=== PATIENT | male | born 1955 | race Caucasian/White ===

== ENCOUNTER → 2016-11-04 | Outpatient (CLI) | payer MEDICARE, OTHER ==
[2016-11-04 13:58] LABS: Aspartate Aminotransferase 13 U/L (15-37)
== END | disposition home or self-care (01) ==
LOC: LAB 13:16
PROVIDERS: ATTEND Internal Medicine
DX: E78.00 Pure hypercholesterolemia, unspecified (principal)
CPT/HCPCS: 36415; 84450; 84460

== ENCOUNTER → 2016-11-06 | Outpatient (CLI) | payer OTHER | END | disposition home or self-care (01) | LOC: RT 10:43 | PROVIDERS: ATTEND Internal Medicine | DX: J44.9 Chronic obstructive pulmonary disease, unspecified (principal) | CPT/HCPCS: 36600; 82805 ==

== ENCOUNTER → 2017-01-29 | Outpatient (CLI) | payer OTHER, MEDICARE ==
[2017-01-29 10:05] LABS: Basophils # (auto) 0 uL; Basophils % (auto) 0.5 % (0.0-2.0); Eosinophils # (auto) 0.1 uL; Eosinophils % (auto) 1.5 % (0.0-7.0); Hematocrit 48.3 % (41.0-53.0); Hemoglobin 16.3 g/dL (13.5-17.5); Lymphocytes # (auto) 1.4 uL; Mean Corpuscular Hemoglobin 31.5 pg (28.0-32.0); Mean Corpuscular Hgb Conc. 33.7 g/dL (32.0-36.0); Mean Corpuscular Volume 93.3 fL (80.0-100.0); Monocytes # (auto) 0.6 uL; Monocytes % (auto) 9.1 % (0.0-12.0); Neutrophils # (auto) 4.7 uL; Neutrophils % (auto) 67.9 % (37.0-80.0); Platelet Count (auto) 280 10^3/uL (140-450); Red Cell Distribution Width 14.1 % (11.6-16.0); White Blood Cell 6.9 10^3/uL (4.4-10.8)
[2017-01-29 11:17] LABS: Albumin 4.1 g/dL (3.4-5.0); BUN/Creatinine Ratio 10.3; Bilirubin, Total 0.6 mg/dL (0.2-1.0); Calcium 8.9 mg/dL (8.5-10.1); Potassium 3.8 mmol/L (3.5-5.1); Total Protein 7.5 g/dL (6.4-8.2)
[2017-01-29 12:01] LABS: Urine Bilirubin Negative (Negative); Urine Blood Negative /uL (Negative); Urine Color Yellow (Yellow); Urine Glucose Normal (Normal); Urine Ketone Negative (Negative); Urine Nitrite Negative (Negative); Urine RBC 1 /hpf (0 - 3); Urine Squamous Epithelial Cell FEW /hpf (<5); Urine Urobilinogen Normal (Negative)
== END | disposition home or self-care (01) ==
LOC: LAB 09:23
PROVIDERS: ATTEND Internal Medicine
DX: J44.9 Chronic obstructive pulmonary disease, unspecified (principal); I10 Essential (primary) hypertension; E78.00 Pure hypercholesterolemia, unspecified
CPT/HCPCS: 36415; 80053; 80061; 81001; 82043; 82306; 84439; 84443; 85025; 85652

== ENCOUNTER → 2017-03-02 | Outpatient (CLI) | payer OTHER | END | disposition home or self-care (01) | LOC: LAB 11:18 | PROVIDERS: ATTEND Internal Medicine Gastroenterology | DX: Z12.11 Encounter for screening for malignant neoplasm of colon (principal) | CPT/HCPCS: 82270 ==

== ENCOUNTER 2019-06-08 08:30 | Inpatient (IN) | payer OTHER, MEDICAID ==
[~2019-06-08] VITALS: Ht 182.9 cm; Wt 86.8 kg
[~2019-06-08 08:30] MED LIST: AMPI500C8 PO; FLUO20CA19 PO; GABA100C9 PO; HYDR25TA4 PO; KEP500T PO; LOVA40TA72 PO; PALI9TAB2 PO; POTA10TA51 PO; TAMS0.4C36 PO
[2019-06-08] MEDS ORDERED: SODIUM CHLORIDE 0.9% 1,000 ML IV ONE ×2 (08:56)
[2019-06-08 09:35] LABS: Hematocrit 45.7 % (41.0-53.0); Mean Corpuscular Hemoglobin 30.5 pg (28.0-32.0); Mean Corpuscular Hgb Conc. 32.9 g/dL (32.0-36.0); Mean Corpuscular Volume 92.8 fL (80.0-100.0); Platelet Count (auto) 252 10^3/uL (140-450); Red Blood Cells 4.92 10^6/uL (4.5-5.90); Red Cell Distribution Width 13.9 % (11.8-14.3); White Blood Cell 19.9 10^3/uL (4.4-10.8)
[2019-06-08 09:45] LABS: Basophils % (manual) 0 (0.0-2.0); Blast Cells 0; Eosinophils % (manual) 0 (0-7); Metamyelocytes % 0; Myelocytes % 0; Promyelocytes % 0; Reactive Lymphocytes 0
[2019-06-08 09:51] LABS: INR 1.01 (0.9-1.15); Partial Thromboplastin Time 28.8 sec (23.64-32.05)
[2019-06-08 09:52] LABS: Albumin 3.5 g/dL (3.4-5.0); Anion Gap 10 (5-15); BUN/Creatinine Ratio 14.3; Blood Urea Nitrogen 17 mg/dL (7-18); Calcium 8.1 mg/dL (8.5-10.1); Carbon Dioxide 26 mmol/L (21-32); Chloride 104 mmol/L (98-107); GFR African American 80 mL/min; GFR Non-African American 66 mL/min; Glucose 119 mg/dL (74-106); Potassium 3.6 mmol/L (3.5-5.1); Sodium 140 mmol/L (136-145)
[2019-06-08 09:57] LABS: Alanine Aminotransferase 27 U/L (16-61); Alkaline Phosphatase 94 U/L (45-117); Aspartate Aminotransferase 90 U/L (15-37); Bilirubin, Total 0.6 mg/dL (0.2-1.0); Total Protein 7.1 g/dL (6.4-8.2)
[2019-06-08 10:59] LABS: Band Neutrophils % (manual) 22; Lymphocytes % (manual) 2 (10.0-50.0); Monocytes % (manual) 3 (0-12)
[2019-06-08] MEDS ORDERED: cefTRIAXone 1GM/50ML D5W 50 ML IV ONE (12:30)
[2019-06-08] MEDS ORDERED: AZITHROMYCIN 500MG/ 250ML 250 ML IV ONE (12:30)
[2019-06-08] MEDS ORDERED: SODIUM CHLORIDE 0.9% 1,000 ML IV SCH (12:43)
[2019-06-08] MEDS ORDERED: ALBUTEROL SULF 2.5 MG/0.5ML(0.5%) NEB SOLN NEB PRN (12:45)
[2019-06-08] MEDS ORDERED: NITROGLYCERIN 0.4 MG SL TAB SL PRN (12:45)
[2019-06-08] MEDS ORDERED: LORazepam 2MG/ML-1ML VIAL IV PRN (12:45)
[2019-06-08] MEDS ORDERED: traMADol HCL 50 MG TAB PO PRN (12:45)
[2019-06-08] MEDS ORDERED: DEXTROSE (50%) 50ML SYRG IV PRN (12:45)
[2019-06-08] MEDS ORDERED: ACETAMINOPHEN 500 MG TAB PO PRN (12:45)
[2019-06-08] MEDS ORDERED: PROMETHAZINE HCL 25 MG/ML 1ML IV PRN (12:45)
[2019-06-08] MEDS ORDERED: LACTULOSE 20Gm/30ML SOLN PO PRN (12:45)
[2019-06-08] MEDS ORDERED: TEMAZEPAM 15 MG CAP PO PRN (12:45)
[2019-06-08] MEDS ORDERED: MORPHINE SULF INJ 2 MG/ML SYRINGE 1ML IV PRN (12:45)
[2019-06-08] MEDS ORDERED: ENOXAPARIN SOD 40 MG/0.4 ML SYRINGE SC ONE (13:00)
[2019-06-08] MEDS ORDERED: LEVETIRACETAM 500 MG TAB PO ONE (13:30)
[2019-06-08] MEDS ORDERED: FLUoxetine HCL 20 MG CAP PO ONE (13:30)
[2019-06-08] MEDS ORDERED: PANTOPRAZOLE 40 MG TAB PO ONE (13:30)
[2019-06-08] MEDS ORDERED: NICOTINE 21MG/24 HR TOPICAL PATCH TD ONE (15:30)
[2019-06-08] MEDS: SODIUM CHLORIDE 0.9% 1,000 ML IV SCH ×2 (15:40→22:45)
[2019-06-08] MEDS ORDERED: MIRT30TA PO (15:50)
[2019-06-08 17:00] VITALS: BP 118/74
[2019-06-08] MEDS: ACCU-CHEK COMFORT CURVE STRIP VI SCH ×2 (17:00→22:11)
[2019-06-08] MEDS: ALBUTEROL SULF 2.5 MG/0.5ML(0.5%) NEB SOLN NEB SCH (18:55)
--- NOTE | 2019-06-08 19:45 | NUR ---
RECEIVED PATIENT FROM DAY SHIFT RN. PATIENT RESTING IN BED. SOB NOTED, BUT NO DISTRESS. DENIED PAIN FOR NOW. PATIENT IS ON 10L/OXYMIZER WITH O2 SAT 92%. PATIENT JUST RECEIVED BREATHING TREATMENT ABOUT 40 MINUTES AGO. TOTAL LINEN CHANGED. PATIENT TOLERATED WELL. REORIENTED PATIENT SITUATION, AND INSTRUCTED PATIENT ON POC. ENCOURAGED PATIENT TO CALL FOR MODERN LANGUAGES PROFESSOR IF NEEDED. BED IN LOWEST POSITION WITH PADDED SIDE RAILS UP X 2. CALL PIMENTEL WITHIN REACH. ALARM ON. CONTINUE TO MONITOR FOR CHANGES Q1H AND PRN.
[2019-06-08 22:00] VITALS: BP 108/66
[2019-06-08] MEDS: TAMSULOSIN HYDROCHLORIDE 0.4 MG CAP PO SCH (22:11)
[2019-06-08] MEDS: PRAVASTATIN SODIUM 20 MG TAB PO SCH (22:11)
[2019-06-08] MEDS: LEVETIRACETAM 500 MG TAB PO SCH (22:11)
[2019-06-08] MEDS: FLUoxetine HCL 20 MG CAP PO SCH (22:11)
--- NOTE | 2019-06-08 22:12 | NUR ---
SCHEDULED ORAL MEDICATION GIVEN ORDERED. PATIENT SWALLOWED WELL. NO S/S OF ASPIRATION NOTED. CONTINUE TO MONITOR.
[2019-06-09] MEDS: ALBUTEROL SULF 2.5 MG/0.5ML(0.5%) NEB SOLN NEB SCH ×5 (00:29→23:32)
--- NOTE | 2019-06-09 01:14 | NUR ---
REPOSITIONED PATIENT, PATIENT TOLERATED WELL. CONTINUE TO MONITOR.
[2019-06-09 05:00] VITALS: BP 102/75
--- NOTE | 2019-06-09 05:15 | NUR ---
PATIENT INCONTINENT, URINATED ON THE BED. PARTIAL LINEN CHANGED AND PATIENT GOWN. PATIENT TOLERATED WELL. REPOSITIONED PATIENT. CONTINUE TO MONITOR.
[2019-06-09 06:34] LABS: Basophils # (auto) 0.1 uL; Basophils % (auto) 0.5 % (0.0-2.0); Eosinophils # (auto) 0 uL; Eosinophils % (auto) 0.2 % (0.0-7.0); Hematocrit 39.1 % (41.0-53.0); Hemoglobin 13.3 g/dL (13.5-17.5); Lymphocytes # (auto) 0.6 uL; Lymphocytes % (auto) 4.9 % (10.0-50.0); Mean Corpuscular Hemoglobin 31.4 pg (28.0-32.0); Mean Corpuscular Volume 92.3 fL (80.0-100.0); Monocytes # (auto) 1.1 uL; Monocytes % (auto) 8.5 % (0.0-12.0); Neutrophils # (auto) 11.1 uL; Neutrophils % (auto) 85.9 % (37.0-80.0); Platelet Count (auto) 188 10^3/uL (140-450); Red Blood Cells 4.23 10^6/uL (4.5-5.90); White Blood Cell 12.9 10^3/uL (4.4-10.8)
--- NOTE | 2019-06-09 06:50 | NUR ---
URINE SAMPLE COLLECTED AND SENT. CONTINUE TO MONITOR.
[2019-06-09] MEDS: ACCU-CHEK COMFORT CURVE STRIP VI SCH ×2 (06:59→11:30)
[2019-06-09] MEDS: PALIPERIDONE 9 MG PO SCH (07:00)
[2019-06-09 07:17] LABS: Urine Bacteria FEW /hpf (None Seen); Urine Blood 3+ /uL (Negative); Urine Mucus FEW (None Seen); Urine Specific Gravity 1.015 (1.001-1.035); Urine WBC 29 /hpf (0 - 3)
[2019-06-09 07:38] LABS: Alcohol, Urine < 3.0 mg/dL (0-5); Amphetamine Screen, Urine NEGATIVE (NEGATIVE); Barbiturate Scree,Urine NEGATIVE (NEGATIVE); Benzodiazephine Screen, Urine NEGATIVE (NEGATIVE); Cannabinoid Screen, Urine NEGATIVE (NEGATIVE); Cocaine Screen, Urine NEGATIVE (NEGATIVE); Opiate Scree,Urine NEGATIVE (NEGATIVE); Phencyclidine Screen, Urine NEGATIVE (NEGATIVE)
[2019-06-09 09:00] VITALS: BP 127/87
[2019-06-09] MEDS: NICOTINE 21MG/24 HR TOPICAL PATCH TD SCH (09:04)
[2019-06-09] MEDS: ENOXAPARIN SOD 40 MG/0.4 ML SYRINGE SC SCH (09:04)
[2019-06-09] MEDS: FLUoxetine HCL 20 MG CAP PO SCH ×2 (09:05→21:57)
[2019-06-09] MEDS: PANTOPRAZOLE 40 MG TAB PO SCH (09:05)
[2019-06-09] MEDS: LEVETIRACETAM 500 MG TAB PO SCH ×2 (09:05→21:57)
[2019-06-09] MEDS: SODIUM CHLORIDE 0.9% 1,000 ML IV SCH ×2 (09:05→13:15)
[2019-06-09] MEDS: AZITHROMYCIN 500MG/ 250ML 250 ML IV SCH (09:06)
[2019-06-09] MEDS: cefTRIAXone 1GM/50ML D5W 50 ML IV SCH (09:06)
[2019-06-09 13:00] VITALS: BP 106/71
--- NOTE | 2019-06-09 16:41 | NUR ---
assessment Per ss consult history of falls, mental retardation, living with sister. Per patients sister Kristan patient fell this time early in the morning tripped over dog and fell in dog stool. Per Kristan patient has a fww and a wheelchair for home use. Patients PCP is Dr Botello. Per Kristan patients mother, her and another sister will be moving in together with patient and patient will have multiple family members to help him. Patient is on service with [facility]. Patient will need a resumption order on discharge. Kristan verbalized understanding and agreed to discharge plan home on discharge. Addendum: 06/09/19 at 1644 by Albertina TATE Amended: Links added.
[2019-06-09 17:00] VITALS: BP 106/71
[2019-06-09] MEDS: ACETYLCYSTEINE 10 %(100MG/ML) SOL 4ML NEB SCH ×2 (19:30→23:32)
[2019-06-09 20:00] VITALS: BP 124/85
[2019-06-09] MEDS: PRAVASTATIN SODIUM 20 MG TAB PO SCH (21:57)
[2019-06-09] MEDS: TAMSULOSIN HYDROCHLORIDE 0.4 MG CAP PO SCH (21:57)
[2019-06-09 22:00] VITALS: BP 124/85
[2019-06-10 05:00] VITALS: BP 126/72
--- NOTE | 2019-06-10 05:35 | NUR ---
Patient bathe/linen change Patient given complete bath. Skin integrity assessed for any changes. Linens changed. Patient repositioned for comfort.
[2019-06-10] MEDS: SODIUM CHLORIDE 0.9% 1,000 ML IV SCH (05:55)
[2019-06-10] MEDS: PALIPERIDONE 9 MG PO SCH (07:00)
[2019-06-10] MEDS: ALBUTEROL SULF 2.5 MG/0.5ML(0.5%) NEB SOLN NEB SCH ×3 (07:22→18:47)
[2019-06-10] MEDS: ACETYLCYSTEINE 10 %(100MG/ML) SOL 4ML NEB SCH ×3 (07:22→18:47)
--- NOTE | 2019-06-10 07:45 | NUR ---
opening patient awake in bed, bed in lowest position, call light within reach. no distress noted at this time. will f/u with morning assessment
[2019-06-10 08:00] VITALS: BP 120/78
[2019-06-10] MEDS: AZITHROMYCIN 500MG/ 250ML 250 ML IV SCH (10:04)
[2019-06-10] MEDS: cefTRIAXone 1GM/50ML D5W 50 ML IV SCH (10:04)
[2019-06-10] MEDS: FLUoxetine HCL 20 MG CAP PO SCH ×2 (10:05→22:15)
[2019-06-10] MEDS: ENOXAPARIN SOD 40 MG/0.4 ML SYRINGE SC SCH (10:05)
[2019-06-10] MEDS: PANTOPRAZOLE 40 MG TAB PO SCH (10:05)
[2019-06-10] MEDS: LEVETIRACETAM 500 MG TAB PO SCH ×2 (10:05→22:15)
[2019-06-10] MEDS: NICOTINE 21MG/24 HR TOPICAL PATCH TD SCH (10:06)
--- NOTE | 2019-06-10 12:22 | NUR ---
dc tele per doctor sosa
[2019-06-10 13:00] VITALS: BP 123/81
[2019-06-10 16:42] VITALS: BP 116/76
--- NOTE | 2019-06-10 18:59 | NUR ---
closing patient in bed, bed in lowest position, call light within reach. no distress noted at this time. md sosa saw patient today, discontinued telemetry patient now at 8 l oximizer patient sats low to mid 90s 02 oxygen ns is at 60 ct pelvis resulted, and family was updated by md sosa. will endorse care to noc nurse
--- NOTE | 2019-06-10 19:40 | NUR ---
Opening Shift Note Assumed care of patient, awake and alert. No S/S of distress/SOB or pain. Instructed on POC and to call for assist PRN, will continue to monitor for changes Q1hr and PRN.
[2019-06-10 22:00] VITALS: BP 122/70
[2019-06-10] MEDS: TAMSULOSIN HYDROCHLORIDE 0.4 MG CAP PO SCH (22:15)
[2019-06-10] MEDS: PRAVASTATIN SODIUM 20 MG TAB PO SCH (22:15)
[2019-06-11] MEDS: ACETYLCYSTEINE 10 %(100MG/ML) SOL 4ML NEB SCH ×4 (00:17→18:43)
[2019-06-11] MEDS: ALBUTEROL SULF 2.5 MG/0.5ML(0.5%) NEB SOLN NEB SCH ×4 (00:17→18:43)
[2019-06-11] MEDS: SODIUM CHLORIDE 0.9% 1,000 ML IV SCH ×2 (02:16→20:30)
[2019-06-11 05:00] VITALS: BP 137/78
[2019-06-11] MEDS: PALIPERIDONE 9 MG PO SCH (07:00)
[2019-06-11 08:29] VITALS: BP 132/89
[2019-06-11] MEDS: cefTRIAXone 1GM/50ML D5W 50 ML IV SCH (09:31)
[2019-06-11] MEDS: PANTOPRAZOLE 40 MG TAB PO SCH (09:35)
[2019-06-11] MEDS: ENOXAPARIN SOD 40 MG/0.4 ML SYRINGE SC SCH (09:35)
[2019-06-11] MEDS: FLUoxetine HCL 20 MG CAP PO SCH ×2 (09:35→21:06)
[2019-06-11] MEDS: LEVETIRACETAM 500 MG TAB PO SCH ×2 (09:35→21:06)
[2019-06-11] MEDS: AZITHROMYCIN 500MG/ 250ML 250 ML IV SCH (10:00)
[2019-06-11] MEDS: NICOTINE 21MG/24 HR TOPICAL PATCH TD SCH (10:36)
[2019-06-11 13:00] VITALS: BP 129/81
[2019-06-11 17:28] VITALS: BP 121/86
--- NOTE | 2019-06-11 19:30 | NUR ---
Opening Shift Note Assumed care of patient, awake and alert x4. Patient denies pain at this time. No S/S of distress/SOB noted. Instructed on plan of care and to call for assistance as needed. Bed is locked in lowest position, side rails x 2 are up, call light is within reach, and bed alarm is on.
--- NOTE | 2019-06-11 20:30 | NUR ---
IV REMOVAL/INSERTION IV DC'd to left forearm with clean sterile technique, catheter fully intact. Pressure dressing applied to site. Patient tolerated well. IV insertion IV access obtained, via clean sterile technique by inserting 22 gauge catheter at left hand after 2 attempts. IV secured properly. IV flushing well with no resistance. Patient denies pain or burning sensation at site. Patient tolerated well.
[2019-06-11 20:38] VITALS: BP 121/83
[2019-06-11] MEDS: PRAVASTATIN SODIUM 20 MG TAB PO SCH (21:06)
[2019-06-11] MEDS: TAMSULOSIN HYDROCHLORIDE 0.4 MG CAP PO SCH (21:06)
[2019-06-11 22:00] VITALS: BP 132/81
[2019-06-12] MEDS: ACETYLCYSTEINE 10 %(100MG/ML) SOL 4ML NEB SCH ×4 (01:06→18:03)
[2019-06-12] MEDS: ALBUTEROL SULF 2.5 MG/0.5ML(0.5%) NEB SOLN NEB SCH ×4 (01:06→18:03)
[2019-06-12 05:00] VITALS: BP 131/92
[2019-06-12 05:45] LABS: Basophils # (auto) 0.1 uL; Basophils % (auto) 0.7 % (0.0-2.0); Eosinophils # (auto) 0.2 uL; Eosinophils % (auto) 3.1 % (0.0-7.0); Hematocrit 39.4 % (41.0-53.0); Hemoglobin 13.4 g/dL (13.5-17.5); Lymphocytes % (auto) 13.9 % (10.0-50.0); Mean Corpuscular Hemoglobin 31.5 pg (28.0-32.0); Mean Corpuscular Volume 92.7 fL (80.0-100.0); Monocytes # (auto) 0.8 uL; Monocytes % (auto) 11.2 % (0.0-12.0); Neutrophils # (auto) 4.9 uL; Neutrophils % (auto) 71.1 % (37.0-80.0); Nucleated Red Blood Cells % 0.1 %; Platelet Count (auto) 244 10^3/uL (140-450); Red Blood Cells 4.25 10^6/uL (4.5-5.90); Red Cell Distribution Width 13.4 % (11.8-14.3); White Blood Cell 6.9 10^3/uL (4.4-10.8)
[2019-06-12 06:12] LABS: Calcium 8.3 mg/dL (8.5-10.1); Potassium 3.7 mmol/L (3.5-5.1)
[2019-06-12 06:15] LABS: BUN/Creatinine Ratio 18.5
[2019-06-12] MEDS: PALIPERIDONE 9 MG PO SCH (06:27)
[2019-06-12] MEDS: cefTRIAXone 1GM/50ML D5W 50 ML IV SCH (08:44)
[2019-06-12] MEDS: PANTOPRAZOLE 40 MG TAB PO SCH (08:48)
[2019-06-12] MEDS: FLUoxetine HCL 20 MG CAP PO SCH ×2 (08:48→21:56)
[2019-06-12] MEDS: LEVETIRACETAM 500 MG TAB PO SCH ×2 (08:48→21:57)
[2019-06-12] MEDS: ENOXAPARIN SOD 40 MG/0.4 ML SYRINGE SC SCH (08:49)
[2019-06-12] MEDS: NICOTINE 21MG/24 HR TOPICAL PATCH TD SCH (08:49)
[2019-06-12] MEDS: SODIUM CHLORIDE 0.9% 1,000 ML IV SCH ×2 (08:52→21:00)
[2019-06-12 09:00] VITALS: BP 136/87
[2019-06-12] MEDS ORDERED: FUROSEMIDE 20 MG/2 ML VIAL IV ONE (09:45)
[2019-06-12] MEDS ORDERED: POTASSIUM CHL 20 Meq TABLET PO ONE (09:45)
[2019-06-12] MEDS: AZITHROMYCIN 500MG/ 250ML 250 ML IV SCH (11:17)
[2019-06-12 13:00] VITALS: BP 122/89
--- NOTE | 2019-06-12 15:36 | NUR ---
20 G TO LEFT AC PLACED FOR iv CONTRAST NEEDED FOR CTA CHEST. BLOOD RETURN APPRECIATED.
--- NOTE | 2019-06-12 15:50 | NUR ---
Nutrition Assessment Notes please see attached link for complete assessment Est. Needs BW 86 [id number] kcal (23-25 kcal/kgBW), 86-94 gms pro (1.0-1.1 gms/kgBW). Will continue to monitor pertinent labs and reassess nutrient need prn Addendum: 06/12/19 at [address] Amended: Links added.
[2019-06-12 17:00] VITALS: BP 133/92
--- NOTE | 2019-06-12 17:03 | NUR ---
Per consult, patient received an order for home health. Referral faxed, and per Janessa at [facility], they are willing to accept this case, and will do start of care 24-48 hours upon discharge. [facility] Direct auth requested. Addendum: 06/12/19 at 1705 by DAGOBERTO LUEVANO Amended: Links added.
[2019-06-12] MEDS: PRAVASTATIN SODIUM 20 MG TAB PO SCH (21:57)
[2019-06-12] MEDS: TAMSULOSIN HYDROCHLORIDE 0.4 MG CAP PO SCH (21:57)
[2019-06-12 22:00] VITALS: BP 139/90
[2019-06-13] MEDS: ALBUTEROL SULF 2.5 MG/0.5ML(0.5%) NEB SOLN NEB SCH ×3 (00:14→11:44)
[2019-06-13] MEDS: ACETYLCYSTEINE 10 %(100MG/ML) SOL 4ML NEB SCH ×3 (00:14→11:44)
[2019-06-13 05:43] VITALS: BP 121/70
[2019-06-13] MEDS: PALIPERIDONE 9 MG PO SCH (06:17)
--- NOTE | 2019-06-13 07:40 | NUR ---
Respiratory note: PT NOTED TO HAVE POX OF 87% ON 3L OXYMIZER PRIOR TO MED NEB TX. MED NEB WAS ADMINISTERED ORDERED, NO ADVERSE REACTIONS NOTED. PT'S OXYMIZER THEN WAS INCREASED TO 5LPM AND POX NOTED TO INCREASE TO 95%.
[2019-06-13] MEDS: cefTRIAXone 1GM/50ML D5W 50 ML IV SCH (08:39)
[2019-06-13] MEDS: NICOTINE 21MG/24 HR TOPICAL PATCH TD SCH (08:43)
[2019-06-13] MEDS: PANTOPRAZOLE 40 MG TAB PO SCH (08:43)
[2019-06-13] MEDS: FLUoxetine HCL 20 MG CAP PO SCH (08:44)
[2019-06-13] MEDS: ENOXAPARIN SOD 40 MG/0.4 ML SYRINGE SC SCH (08:44)
[2019-06-13] MEDS: LEVETIRACETAM 500 MG TAB PO SCH (08:44)
--- NOTE | 2019-06-13 09:24 | NUR ---
Received auth ([id number]) for [facility] from Luanne at [facility]. Addendum: 06/13/19 at 0926 by DAGOBERTO LUEVANO SS Amended: Links added.
[2019-06-13] MEDS: AZITHROMYCIN 500MG/ 250ML 250 ML IV SCH (09:38)
[2019-06-13 10:00] VITALS: BP 130/92
[2019-06-13 12:00] VITALS: BP 144/94
[2019-07-20] MEDS ORDERED: GABA100C9 PO (14:02)
[2019-07-20] MEDS ORDERED: FLUO-125 PO (14:02)
[2019-07-20] MEDS ORDERED: BACL10TA PO (14:02)
[2019-07-20] MEDS ORDERED: POTA1TAB61 PO (14:02)
[2019-07-20] MEDS ORDERED: PRAV20TA3 PO (14:02)
[2019-07-20] MEDS ORDERED: PALI1TAB4 PO (14:02)
[2019-07-20] MEDS ORDERED: KEP500T PO (14:02)
[2019-07-20] MEDS ORDERED: TAMS0.4C36 PO (14:02)
[2019-07-20] MEDS ORDERED: HYDR-4833 PO (14:02)
[2019-07-20] MEDS ORDERED: LEV50T GT (14:02)
[2019-07-20] MEDS ORDERED: FURO20TA3 PO (14:02)
== END 2019-06-13 13:15 | disposition home health service (06) | DRG 193 ==
LOC: EDBD 08:30 → ER 08:32 → TELE 08:33 → TELE-CENTR 14:02 → CENTRAL 06-10 09:43
PROVIDERS: ADMIT Internal Medicine; ATTEND Internal Medicine
DX: J18.9 Pneumonia, unspecified organism (principal); G93.41 Metabolic encephalopathy; J96.20 Acute and chronic respiratory failure, unspecified whether with hypoxia or hypercapnia; N39.0 Urinary tract infection, site not specified; T17.590A Other foreign object in bronchus causing asphyxiation, initial encounter; G91.2 (Idiopathic) normal pressure hydrocephalus; J44.0 Chronic obstructive pulmonary disease with (acute) lower respiratory infection; G40.909 Epilepsy, unspecified, not intractable, without status epilepticus; N40.0 Benign prostatic hyperplasia without lower urinary tract symptoms; W18.39XA Other fall on same level, initial encounter; I10 Essential (primary) hypertension; I67.2 Cerebral atherosclerosis; M48.061 Spinal stenosis, lumbar region without neurogenic claudication; Z72.0 Tobacco use; Z99.81 Dependence on supplemental oxygen; Z90.49 Acquired absence of other specified parts of digestive tract; Y93.89 Activity, other specified; Y92.098 Other place in other non-institutional residence as the place of occurrence of the external cause; Y99.8 Other external cause status; Z83.3 Family history of diabetes mellitus; Z82.49 Family history of ischemic heart disease and other diseases of the circulatory system
CPT/HCPCS: 36415; 70450; 71045; 71250; 71275; 72192; 80048; 80053; 80307; 81001; 82962; 83036; 83605; 83880; 84484; 85007; 85025; 85027; 85379; 85610; 85730; 87040; 87086; 93005; 94640; 94667; 94668; 96361; 96365; 96372; 97110; 97116; 97163; 97530; G0378; J0696

== ENCOUNTER 2019-06-14 10:03 | Inpatient (IN) | payer OTHER, MEDICAID ==
[~2019-06-14] VITALS: Ht 182.9 cm; Wt 85.4 kg
[~2019-06-14 10:03] MED LIST changes: -AMPI500C8 PO; +MIRT30TA PO
[2019-06-14 10:54] LABS: Basophils # (auto) 0.1 uL; Basophils % (auto) 0.7 % (0.0-2.0); Eosinophils # (auto) 0.1 uL; Hematocrit 44.1 % (41.0-53.0); Hemoglobin 15.1 g/dL (13.5-17.5); Lymphocytes % (auto) 12.6 % (10.0-50.0); Mean Corpuscular Hemoglobin 31.3 pg (28.0-32.0); Mean Corpuscular Hgb Conc. 34.1 g/dL (32.0-36.0); Mean Corpuscular Volume 91.8 fL (80.0-100.0); Monocytes # (auto) 0.7 uL; Monocytes % (auto) 8.1 % (0.0-12.0); Neutrophils # (auto) 6.5 uL; Neutrophils % (auto) 77.6 % (37.0-80.0); Platelet Count (auto) 302 10^3/uL (140-450); Red Blood Cells 4.81 10^6/uL (4.5-5.90); Red Cell Distribution Width 13.6 % (11.8-14.3); White Blood Cell 8.3 10^3/uL (4.4-10.8)
[2019-06-14 11:13] LABS: Alanine Aminotransferase 59 U/L (16-61); Albumin 3.3 g/dL (3.4-5.0); Anion Gap 7 (5-15); Aspartate Aminotransferase 44 U/L (15-37); BUN/Creatinine Ratio 20.9; Blood Urea Nitrogen 18 mg/dL (7-18); Calcium 8.8 mg/dL (8.5-10.1); Carbon Dioxide 27 mmol/L (21-32); Chloride 107 mmol/L (98-107); GFR African American 116 mL/min; GFR Non-African American 96 mL/min; Glucose 103 mg/dL (74-106); Potassium 3.5 mmol/L (3.5-5.1); Sodium 141 mmol/L (136-145)
[2019-06-14 11:18] LABS: Alkaline Phosphatase 102 U/L (45-117); Bilirubin, Total 0.3 mg/dL (0.2-1.0); Total Protein 7.2 g/dL (6.4-8.2)
[2019-06-14] MEDS ORDERED: SODIUM CHLORIDE 0.9% 500 ML IVB ONE (12:25)
[2019-06-14 13:37] LABS: INR 0.97 (0.9-1.15); Partial Thromboplastin Time 28.5 sec (23.64-32.05)
[2019-06-14] MEDS ORDERED: SODIUM CHLORIDE 0.9% 1,000 ML IV ONE (15:30)
[2019-06-14] MEDS ORDERED: HYDROcodone-ACET 5/325MG TAB PO ONE (15:30)
[2019-06-14] MEDS ORDERED: NITROGLYCERIN 0.4 MG SL TAB SL PRN (16:00)
[2019-06-14] MEDS ORDERED: MORPHINE SULF INJ 2 MG/ML SYRINGE 1ML IV PRN (16:00)
[2019-06-14 16:07] LABS: Magnesium 2.5 mg/dL (1.6-2.6)
[2019-06-14] MEDS: SOD CHL 0.45% WITH 20MEQ KCL 1,000 ML IV SCH (16:17)
[2019-06-14 16:30] VITALS: BP 106/71
[2019-06-14 17:00] LABS: Urine Bacteria NONE SEEN /hpf (None Seen); Urine Blood Negative /uL (Negative); Urine Mucus FEW (None Seen); Urine Specific Gravity 1.021 (1.001-1.035); Urine WBC 1 /hpf (0 - 3)
[2019-06-14] MEDS ORDERED: MORPHINE SULF INJ 2 MG/ML SYRINGE 1ML IV ONE (17:15)
[2019-06-14 17:27] LABS: Folate (Folic Acid) 14.35 ng/mL (5.38-24)
[2019-06-14] MEDS: NICOTINE 21MG/24 HR TOPICAL PATCH TD SCH (17:47)
[2019-06-14] MEDS: MIRTAZAPINE 30 MG TAB PO SCH (17:50)
--- NOTE | 2019-06-14 18:00 | NUR ---
ADMIT: Telemetry admit from GENOVEVA DOYLE admitted to Telemetry unit after no SBAR received. Patient oriented to YOJANA PIERCE, primary RN, unit, room, bed, and unit policies regarding patient care and visiting hours. Patient now on continuous telemetry monitoring, tele box #2 and telemetry reading on arrival to unit is SR 76. Patient placed on bedside oxygenat 3L NC, weighed by bedscale and encouraged to call if they need something. All questions and concerns addressed, patient verbalized understanding. Note:
[2019-06-14] MEDS: ENSURE CLEAR Apple 8oz Carton PO SCH (18:22)
[2019-06-14 18:33] VITALS: BP 138/96
--- NOTE | 2019-06-14 19:12 | NUR ---
CLOSING SHIFT NOTE: Report given to NOC RN. Endorsed care of patient.
--- NOTE | 2019-06-14 19:40 | NUR ---
Opening Shift Note Assumed care of patient, awake and alert. No S/S of distress/SOB noted. Bed is in lowest locked position with bed rails up x2 and call light is within reach of the patient. Bed alarm is armed and bed rails are padded x2 for seizure precautions. To turn [id number]. Instructed on POC and to call for assist PRN.
[2019-06-14] MEDS: PRAVASTATIN SODIUM 20 MG TAB PO SCH (21:40)
[2019-06-14] MEDS: TAMSULOSIN HYDROCHLORIDE 0.4 MG CAP PO SCH (21:40)
[2019-06-14] MEDS: LEVETIRACETAM 500 MG TAB PO SCH (21:40)
[2019-06-14 22:00] VITALS: BP 108/68
--- NOTE | 2019-06-14 22:00 | NUR ---
Hospitalist paged: Paged hospitalist regarding patients 9/10 back pain and no scheduled pain medications for prn. Waiting for call back.
--- NOTE | 2019-06-14 22:00 | NUR ---
MRSA: Sent MRSA swab to lab. Patient tolerated well.
[2019-06-14] MEDS: HYDROcodone-ACET 5/325MG TAB PO PRN (23:12)
--- NOTE | 2019-06-14 23:15 | NUR ---
Hospitalist called back: Hospitalist Johnie called back. Notified him about patients 9/10 back pain and no pain medications ordered. New orders received. To place and carry out orders.
[2019-06-15] MEDS: SOD CHL 0.45% WITH 20MEQ KCL 1,000 ML IV SCH ×2 (02:31→13:23)
[2019-06-15 05:00] VITALS: BP 141/87
[2019-06-15 06:19] LABS: Basophils # (auto) 0 uL; Basophils % (auto) 0.5 % (0.0-2.0); Eosinophils # (auto) 0.1 uL; Eosinophils % (auto) 2.1 % (0.0-7.0); Hematocrit 40.1 % (41.0-53.0); Hemoglobin 13.7 g/dL (13.5-17.5); Lymphocytes # (auto) 1.1 uL; Lymphocytes % (auto) 17.3 % (10.0-50.0); Mean Corpuscular Hemoglobin 31.8 pg (28.0-32.0); Mean Corpuscular Hgb Conc. 34.3 g/dL (32.0-36.0); Mean Corpuscular Volume 92.6 fL (80.0-100.0); Monocytes # (auto) 0.6 uL; Monocytes % (auto) 8.6 % (0.0-12.0); Neutrophils # (auto) 4.6 uL; Neutrophils % (auto) 71.5 % (37.0-80.0); Platelet Count (auto) 296 10^3/uL (140-450); Red Blood Cells 4.32 10^6/uL (4.5-5.90); Red Cell Distribution Width 13.6 % (11.8-14.3); White Blood Cell 6.4 10^3/uL (4.4-10.8)
[2019-06-15 06:52] LABS: Calcium 8.1 mg/dL (8.5-10.1); Potassium 3.5 mmol/L (3.5-5.1)
--- NOTE | 2019-06-15 07:40 | NUR ---
OPENING SHIFT NOTE: Received report from NOC RNChana. Assumed care of patient. Patient resting in bed. Bed in lowest position, rails x2 up and call light within reach. Updated on plan of care. Will continue to monitor.
[2019-06-15] MEDS: ENSURE CLEAR Apple 8oz Carton PO SCH ×3 (08:00→18:00)
[2019-06-15 09:00] VITALS: BP 135/90
[2019-06-15] MEDS: HYDROcodone-ACET 5/325MG TAB PO PRN (10:35)
[2019-06-15] MEDS: NICOTINE 21MG/24 HR TOPICAL PATCH TD SCH (10:36)
[2019-06-15] MEDS: LEVETIRACETAM 500 MG TAB PO SCH ×2 (10:36→22:00)
[2019-06-15] MEDS ORDERED: FUROSEMIDE 40 MG/4 ML VIAL IV ONE (12:00)
[2019-06-15] MEDS ORDERED: BACLOFEN 10 MG TAB PO PRN (15:30)
[2019-06-15] MEDS ORDERED: HYDROcodone-ACET 10/325MG TAB PO PRN (15:30)
[2019-06-15 17:28] VITALS: BP 117/70
[2019-06-15] MEDS ORDERED: POTASSIUM CHL 10 Meq TABLET PO ONE (17:30)
[2019-06-15] MEDS: MIRTAZAPINE 30 MG TAB PO SCH (18:34)
--- NOTE | 2019-06-15 19:19 | NUR ---
CLOSING SHIFT NOTE: Report given to NOC Holly KEENE. Endorsed care of patient.
[2019-06-15] MEDS: ALBUTEROL SULF 2.5 MG/0.5ML(0.5%) NEB SOLN NEB SCH (19:24)
[2019-06-15] MEDS: IPRATROPIUM BROM 0.5 MG/2.5ML INH SOL NEB SCH (19:24)
[2019-06-15] MEDS: ACETYLCYSTEINE 10 %(100MG/ML) SOL 4ML NEB SCH (19:25)
[2019-06-15 19:29] LABS: Free T3 2.37 pg/mL (2.3-4.2); Free T4 (Free Thyroxine) 1.01 ng/dL (0.89-1.76)
--- NOTE | 2019-06-15 19:30 | NUR ---
Opening Shift Note Assumed care of patient, awake and alert. No S/S of distress/SOB. Complains of pain to neck 05/10. Chronic pain per patient. Will medicate per orders. Offered heat pack as well. Bed alarm went off to find patient already sitting on commode. requested he call us for assistance next time. Verbalized understanding. Lyons catheter in place. Instructed on POC and to call for assist PRN, will continue to monitor for changes Q1hr and PRN. Bed alarm placed.
[2019-06-15 21:30] VITALS: BP 116/68
[2019-06-15] MEDS: PRAVASTATIN SODIUM 20 MG TAB PO SCH (22:00)
[2019-06-15] MEDS: TAMSULOSIN HYDROCHLORIDE 0.4 MG CAP PO SCH (22:00)
--- NOTE | 2019-06-15 22:00 | NUR ---
Patient had small soft BM. Assisted with jason care. Changed stat lock for mcclure as original one was soiled in feces. Also did meatal care with mcclure wipes. Medicated with [place] for pain. Will continue to monitor. replaced oxygen tubing as well. tubing found lying under patient and soiled. Placed new chux and sheets.Bed alarm placed and bed in lowest position
[2019-06-16] MEDS: IPRATROPIUM BROM 0.5 MG/2.5ML INH SOL NEB SCH ×4 (00:19→18:28)
[2019-06-16] MEDS: ALBUTEROL SULF 2.5 MG/0.5ML(0.5%) NEB SOLN NEB SCH ×4 (00:19→18:28)
[2019-06-16] MEDS: ACETYLCYSTEINE 10 %(100MG/ML) SOL 4ML NEB SCH ×4 (00:19→18:28)
--- NOTE | 2019-06-16 00:22 | NUR ---
RT NOTE EVERY TIME THE RT COMES IN TO GIVE THE PT A TX, THE PT IS OFF O2. THE FIRST TIME THE PT WAS SATING 86%, THIS TIME THE PT WAS SATING 84% AND THE NC WAS OFF PT AND THE O2 WAS TURNED OFF. WHEN RT LEFT PT AFTER FIST TX THE O2 WAS ON 3LPM AND THE NC WAS ON THE PT. RT WILL SPEAK WITH THE RN TO SEE WHAT IS HAPPENING. Addendum: 06/16/19 at 0029 by JONATHAN MONTES, RT PT IS REFUSING TO WEAR THE BIPAP WELL. RT EXPLAINED THE BENEFIT OF USING THE BIPAP. PT STILL REFUSED.
[2019-06-16 05:23] VITALS: BP 129/85
--- NOTE | 2019-06-16 07:20 | NUR ---
Opening Shift Note Assumed care of patient, awake and alert. No S/S of distress/SOB or pain. Instructed on POC and to call for assist PRN, will continue to monitor for changes Q1hr and PRN. Bed locked in lowest position with two side rails up and call light in reach. Nasal cannula off patients nose, replaced nasal cannula and educated patient on the need to have it on at all times. Patient verbalized understanding.
[2019-06-16 08:00] VITALS: BP 111/69
[2019-06-16] MEDS: ENSURE CLEAR Apple 8oz Carton PO SCH ×3 (08:00→18:00)
[2019-06-16 08:30] VITALS: BP 111/69
[2019-06-16] MEDS: LEVETIRACETAM 500 MG TAB PO SCH ×2 (09:41→21:44)
[2019-06-16] MEDS: POTASSIUM CHL 10 Meq TABLET PO SCH (09:43)
[2019-06-16] MEDS: NICOTINE 21MG/24 HR TOPICAL PATCH TD SCH (09:43)
[2019-06-16] MEDS: FUROSEMIDE 40 MG/4 ML VIAL IV SCH (09:49)
--- NOTE | 2019-06-16 11:00 | NUR ---
TELE REMOVED FROM PATIENT ORDERED BY DR ROMAN, RETURNED TO GRABIEL VIA BULLET AND CALLED GRABIEL TO NOTIFY.
[2019-06-16] MEDS ORDERED: BACL10TA PO (11:02)
[2019-06-16 12:30] VITALS: BP 117/76
--- NOTE | 2019-06-16 15:42 | NUR ---
RECEIVED A CALL FROM DR ROMAN PER DR JESSIE GUTIERREZ WILL BE DOING AN EPIDURAL STEROID INJECTION TOMORROW 06/17/19 PATIENT TO HAVE NO BLOOD THINNERS OR ASA . ORDERS RECEIVED FOR KENALOG 80MG INTRA ARTICULAR AND BUPIVACAINE 0.25 MG . OBTAIN CONSENT FOR EPIDURAL STEROID INJECTION, AN RETRIEVE EPIDURAL TRAY. WILL IMPLEMENT ORDERS RECEIVED. PATIENT DOES NOT NEED TO BE NPO, MAY HAVE A LIGHT BREAKFAST.
--- NOTE | 2019-06-16 16:47 | NUR ---
D/C planning Per consult for SNF placement. Contacted all three facilities and faxed medical records to [facility], [facility]. Per Oly from [facility] Ph: ( [phone]) Fax: ( [phone]) Pt has been accepted and they would need authorization from insurance first in order to provide room number and accepting Doctor. Contacted and faxed medical records to [facility] insurance ) Fax: ). Per Rubén from [facility] authorization number for SNF is [id number]. Followed up with Oly from [facility] and provided her with authorization number. Per Oly from [facility] Pt has been accepted to room 202 [address] Merrill. Contacted [facility] transportation to set up transportation for tomorrow Wednesday06/17/19 at 13:00 Ph: ) Fax: ) faxed medical records. Per Mary from [facility] transportation, faxed has been received and they will set up transport with [employer] via [employer] ) for tomorrow at 13:00. Informed YECENIA Osborn. Addendum: 06/16/19 at 1657 by OZZIE RAMSEY Amended: Links added.
[2019-06-16 17:09] VITALS: BP 104/64
--- NOTE | 2019-06-16 17:30 | NUR ---
RECEIVED TELEPHONE ORDERS FROM DR ROMAN ON THE MED REC FOR TRANSFER WILL IMPLEMENT ORDERS.
[2019-06-16] MEDS: MIRTAZAPINE 30 MG TAB PO SCH (18:50)
--- NOTE | 2019-06-16 19:10 | NUR ---
Opening Shift Note Assumed care of patient asleep with breathing even and unlabored. Will continue to monitor for changes Q1hr and PRN. Side rails up x2. Bed locked in lowest position. Call light within reach.
[2019-06-16] MEDS: TAMSULOSIN HYDROCHLORIDE 0.4 MG CAP PO SCH (21:44)
[2019-06-16] MEDS: PRAVASTATIN SODIUM 20 MG TAB PO SCH (21:44)
[2019-06-16 22:00] VITALS: BP_SYST 111; BP_SYST 137; BP_DIAS 68; BP_DIAS 72
--- NOTE | 2019-06-16 22:30 | NUR ---
PT REFUSED TO GO ON BIPAP. NO RESP DISTRESS NOTED. SAT 93% ON 3L NC
[2019-06-17] VITALS (7 sets, daily range): BP systolic 99–150; BP diastolic 64–86
[2019-06-17] MEDS: ALBUTEROL SULF 2.5 MG/0.5ML(0.5%) NEB SOLN NEB SCH ×4 (00:22→18:48)
[2019-06-17] MEDS: ACETYLCYSTEINE 10 %(100MG/ML) SOL 4ML NEB SCH ×4 (00:22→18:48)
[2019-06-17] MEDS: IPRATROPIUM BROM 0.5 MG/2.5ML INH SOL NEB SCH ×4 (00:22→18:48)
--- NOTE | 2019-06-17 06:15 | NUR ---
Telephone consent From sister Kristan Miles. Witnessed by this RN and Ramya KEENE.
[2019-06-17] MEDS: LEVOTHYROXINE SODIUM 25 MCG TAB PO SCH (06:34)
--- NOTE | 2019-06-17 07:10 | NUR ---
Open Shift Note Received report on patient, awake and lying in bed on side. Patient shows no signs of distress at this time and states having no pain. Discussed POC and plans for steroid injection and transfer to [facility], patient verbalized understanding. Bed in lowest locked position, side rails up x2 and call light within reach. Will continue to monitor.
--- NOTE | 2019-06-17 07:35 | NUR ---
Endorsed care to day shift RN. Patient in bed awake with no signs of distress.
[2019-06-17] MEDS ORDERED: TRIAMCINOLONE 40MG/ML 1ML VIAL IX ONE (08:00)
[2019-06-17] MEDS ORDERED: BUPIVACAINE W/ EPINEPH 0.25% INJ 50ML MDV IJ ONE (08:00)
[2019-06-17] MEDS: LEVETIRACETAM 500 MG TAB PO SCH ×2 (09:49→22:55)
[2019-06-17] MEDS: ENSURE CLEAR Apple 8oz Carton PO SCH ×3 (09:49→19:19)
[2019-06-17] MEDS: POTASSIUM CHL 10 Meq TABLET PO SCH (09:49)
[2019-06-17] MEDS: FUROSEMIDE 40 MG/4 ML VIAL IV SCH (09:49)
[2019-06-17] MEDS: NICOTINE 21MG/24 HR TOPICAL PATCH TD SCH (09:51)
[2019-06-17] MEDS ORDERED: BUPIVACAINE 0.25% INJ 50ML VIAL IJ ONE (11:00)
--- NOTE | 2019-06-17 12:00 | NUR ---
Transportation At [facility]-Turned Away [facility] transportation here to transfer patient to [facility] but informed them that Dr Mckenna has held the discharge until tomorrow. [facility] transportation verbalized understanding and stated to call their boss if anything changes, .
--- NOTE | 2019-06-17 14:38 | NUR ---
Estimated needs based on CBW 86.6 kg-wt maintenance [id number] kcal (22-24 kcal/kg) 69-86 g protein (0.8-1.0 g/kg) Addendum: 06/17/19 at [address] Amended: Links added.
--- NOTE | 2019-06-17 15:35 | NUR ---
Paged Case Management For Transport Paged independent beauty consultant ed case manager to inform them that transport has to be set up again through [facility]. Tried calling [facility] but their office is closed for the weekend. Transportation stated the ed case manager will have to contact [facility] after hours number. Awaiting call back.
--- NOTE | 2019-06-17 17:08 | NUR ---
[facility] Must Call For Transport Called IE after receiving new authorization number from Albertina, [id number], but [facility] stated they can only accept authorization numbers from [facility] directly. Made Albertina from social service manager aware, she stated she will call them and speak to them. Awaiting callback.
--- NOTE | 2019-06-17 17:15 | NUR ---
Albertina Called Albertina called and stated that she left voicemail with [facility] and stated to have patient ready for transport because she is not sure of a time for shrimp picker yet since only a voicemail was left. Verbalized understanding and stated [place] would be contacted and given report.
--- NOTE | 2019-06-17 17:24 | NUR ---
Gave Report To Diane [facility] Called [facility] and gave report to Lara. Informed Lara that a time has not been confirmed for transport yet. Lara verbalized understanding.
--- NOTE | 2019-06-17 17:27 | NUR ---
Sister Kristan Aware of Transfer Called patient's sister Kristan and made her aware we are waiting for transport to [facility]. Kristan verbalized understanding. [phone]
[2019-06-17] MEDS: MIRTAZAPINE 30 MG TAB PO SCH (19:19)
--- NOTE | 2019-06-17 19:20 | NUR ---
Closing Note Endorsed care to NOC nurse. Patient shows no signs of distress at this time.
--- NOTE | 2019-06-17 19:23 | NUR ---
Opening Shift Note Assumed care of patient, awake and alert x4. No S/S of distress/SOB or pain. Lyons is in place, hung below bladder, and draining clear/yellow urine. Seizure precautions are at bedside. Instructed on POC and to call for assist PRN. Patient is aware of possible transfer tonight to [facility]. All questions and concerns answered, will continue to monitor for changes Q1hr and PRN.
[2019-06-17] MEDS: PRAVASTATIN SODIUM 20 MG TAB PO SCH (22:55)
[2019-06-17] MEDS: TAMSULOSIN HYDROCHLORIDE 0.4 MG CAP PO SCH (22:55)
[2019-06-18] MEDS: ALBUTEROL SULF 2.5 MG/0.5ML(0.5%) NEB SOLN NEB SCH ×2 (00:30→09:03)
[2019-06-18] MEDS: IPRATROPIUM BROM 0.5 MG/2.5ML INH SOL NEB SCH ×2 (00:30→09:04)
[2019-06-18] MEDS: ACETYLCYSTEINE 10 %(100MG/ML) SOL 4ML NEB SCH ×2 (00:34→09:04)
[2019-06-18 05:00] VITALS: BP 112/73
[2019-06-18] MEDS: LEVOTHYROXINE SODIUM 25 MCG TAB PO SCH (06:45)
--- NOTE | 2019-06-18 07:30 | NUR ---
Opening Shift Note Assumed care of patient, awake and alert. No S/S of distress/SOB or pain on 3 LPM via nasal cannula. Instructed on POC and to call for assist PRN, will continue to monitor for changes Q1hr and PRN. Bed in low and locked position, rails up x2, no-slip socks on.
[2019-06-18] MEDS: ENSURE CLEAR Apple 8oz Carton PO SCH (08:00)
[2019-06-18 08:33] VITALS: BP 96/68
--- NOTE | 2019-06-18 09:15 | NUR ---
CALL TO ADULT NEUROPSYCHOLOGIST CASE MANAGEMENT [facility]ATSHE[facility] CALL BACK, AUTH NUMBER [id number] CONFIRMED AND OBTAINED NUMBER FOR [facility] TRANSPORT ON-CALL SNEHAL [phone]. WILL CALL TO ENSURE TRANSPORT WAS ARRANGED FOR TODAY.
[2019-06-18] MEDS: FUROSEMIDE 40 MG/4 ML VIAL IV SCH (10:00)
[2019-06-18] MEDS: LEVETIRACETAM 500 MG TAB PO SCH (10:00)
[2019-06-18] MEDS: POTASSIUM CHL 10 Meq TABLET PO SCH (10:00)
--- NOTE | 2019-06-18 10:00 | NUR ---
[facility] CALL BACK-NO AVAILABLE TRANSPORT TODAY INFORMED BY SNEHAL THAT THERE WILL NOT BE AVAILABLE TRANSPORT FROM [employer] TODAY, FIRST AVAILABLE WOULD BE 06/19 AT 8AM. THIS NURSE ASKED FOR AUTH FOR OTHER AVAILABLE TRANSPORTATION COMPANIES AND SHE INFORMED SHE WILL CALL BACK.
[2019-06-18] MEDS: NICOTINE 21MG/24 HR TOPICAL PATCH TD SCH (10:04)
--- NOTE | 2019-06-18 10:05 | NUR ---
[facility]KE TO CHARGE NURSE [phone], CONFIRMED BED IN ROOM 202- BED 2 STILL AVAILABLE FOR PATIENT, UPDATED THAT WE WILL INFORM ON UNDATED TRANSPORTATION TIME.
--- NOTE | 2019-06-18 10:27 | NUR ---
[facility] CALL BACK [facility] IS TO BE CALLED FOR TRANSPORTATION ARRANGEMENT ON NON-EMERGENT SIDE NUMBER [phone] AUTH NUMBER IS [id number]. SNEHAL FROM [facility]([phone]) ALSO NOTIFIED THERE IS A RISK FOR DENIAL FOR THE LAST DAY SINCE TRANSPORT FROM 06/17 WAS NOT CALLED EARLY ENOUGH TO REARRANGE TIME, RESULTING IN AN ADDITIONAL STAY. WILL CALL [facility] TO ARRANGE TRANSPORTATION
--- NOTE | 2019-06-18 10:38 | NUR ---
CALL TO [facility] PROVIDED AUTH AND PATIENT INFORMATION, PLACED ON WILL CALL DUE TO CALL FROM [facility] SPOKE TO ADRIEL, STATED SHE IS WORKING ON TRANSPORT WITH [facility] FOR GURNEY AND OXYGEN. AWAITING CALL BACK.
--- NOTE | 2019-06-18 10:45 | NUR ---
TRANSPORT ARRANGED 1200 DOVETAILER WITH [facility] [phone], CONFIRMED WITH ADRIEL FROM [facility]
--- NOTE | 2019-06-18 11:00 | NUR ---
[facility] INFOR[facility] OF PLANNED TRANSPORT AT 1200, REPORT GIVEN TO MODESTA
--- NOTE | 2019-06-18 11:09 | NUR ---
[facility] AT BEDSIDE INFORMED THEY WERE SUPPOSED TO BE PLACED ON WILL CALL. CALL TO [facility] DISPATCH AND THEY CONFIRMED IT SHOULD HAVE BEEN ON WILL CALL, ALSO CALLED TO CANCEL SINCE ALTERNATIVE TRANSPORT HAS BEEN ARRANGED.
--- NOTE | 2019-06-18 12:18 | NUR ---
DISCHARGE Discharge instructions given as ordered. Encourage to follow up with PMD as instructed. All questions and concerns addressed. Patient verbalized understanding. Medication reconciliation form completed and copy given to patient. IV removed with catheter intact, pressure dressing applied, mcclure catheter remained in place per MD orders. Patient taken to vehicle via gurney and [facility] transport with all personal belongings, accompanied by staff. Family notified of discharge. No distress noted at time of departure.
[2019-06-18 13:02] VITALS: BP 96/61
== END 2019-06-18 12:18 | DRG 551 ==
LOC: EDBD 10:03 → ER 10:03 → TELE 10:04 → TELE-WESTW 18:02 → WEST WING 06-16 10:56
PROVIDERS: ADMIT Nurse Practitioner Acute Care; ATTEND Internal Medicine
PROC: 5A09357 Assistance with Respiratory Ventilation, Less than 24 Consecutive Hours, Continuous Positive Airway Pressure (ICD-10-PCS; principal; 2019-06-14)
PROC: 3E0R33Z Introduction of Anti-inflammatory into Spinal Canal, Percutaneous Approach (ICD-10-PCS; 2019-06-17)
PROC: 3E0R3BZ Introduction of Anesthetic Agent into Spinal Canal, Percutaneous Approach (ICD-10-PCS; 2019-06-17)
DX: M48.061 Spinal stenosis, lumbar region without neurogenic claudication (principal); J96.21 Acute and chronic respiratory failure with hypoxia; G93.41 Metabolic encephalopathy; I50.33 Acute on chronic diastolic (congestive) heart failure; F32.9 Major depressive disorder, single episode, unspecified; E78.00 Pure hypercholesterolemia, unspecified; M47.26 Other spondylosis with radiculopathy, lumbar region; I11.0 Hypertensive heart disease with heart failure; M16.0 Bilateral primary osteoarthritis of hip; F17.210 Nicotine dependence, cigarettes, uncomplicated; F03.90 Unspecified dementia, unspecified severity, without behavioral disturbance, psychotic disturbance, mood disturbance, and anxiety; M43.16 Spondylolisthesis, lumbar region; M46.06 Spinal enthesopathy, lumbar region; G89.29 Other chronic pain; W18.39XA Other fall on same level, initial encounter; F41.9 Anxiety disorder, unspecified; E03.9 Hypothyroidism, unspecified; G40.909 Epilepsy, unspecified, not intractable, without status epilepticus; J43.9 Emphysema, unspecified; E78.5 Hyperlipidemia, unspecified; Z83.3 Family history of diabetes mellitus; Z90.49 Acquired absence of other specified parts of digestive tract; Z87.01 Personal history of pneumonia (recurrent); Z98.1 Arthrodesis status; Z86.73 Personal history of transient ischemic attack (TIA), and cerebral infarction without residual deficits; Y93.89 Activity, other specified; Y92.89 Other specified places as the place of occurrence of the external cause; Y99.8 Other external cause status; Z99.81 Dependence on supplemental oxygen; Z79.899 Other long term (current) drug therapy
CPT/HCPCS: 36415; 36600; 71045; 72131; 72192; 80048; 80053; 81001; 82306; 82746; 82805; 83735; 84425; 84439; 84443; 84481; 84484; 85025; 85610; 85730; 87081; 93005; 94640; 94660; 94761; 96361; 96365; 97110; 97530; G0378; J3490

== ENCOUNTER 2019-07-27 11:25 | Inpatient (IN) | payer OTHER, MEDICAID ==
[~2019-07-27] VITALS: Ht 172.7 cm; Wt 90.0 kg
[~2019-07-27 11:25] MED LIST changes: +BACL10TA PO; +FLUO-125 PO; -FLUO20CA19 PO; +FURO20TA3 PO; +HYDR-4833 PO; +LEV50T GT; +PALI1TAB4 PO; -POTA10TA51 PO; +POTA1TAB61 PO; +PRAV20TA3 PO
[2019-07-27 14:22] LABS: Basophils # (auto) 0.1 uL; Basophils % (auto) 1.6 % (0.0-2.0); Eosinophils # (auto) 0.1 uL; Hematocrit 40.4 % (41.0-53.0); Hemoglobin 14.4 g/dL (13.5-17.5); Lymphocytes # (auto) 0.9 uL; Lymphocytes % (auto) 15.5 % (10.0-50.0); Mean Corpuscular Hemoglobin 31.6 pg (28.0-32.0); Mean Corpuscular Hgb Conc. 35.5 g/dL (32.0-36.0); Mean Corpuscular Volume 88.8 fL (80.0-100.0); Monocytes # (auto) 0.6 uL; Monocytes % (auto) 10.5 % (0.0-12.0); Neutrophils % (auto) 71.4 % (37.0-80.0); Platelet Count (auto) 276 10^3/uL (140-450); Red Blood Cells 4.55 10^6/uL (4.5-5.90); Red Cell Distribution Width 14.6 % (11.8-14.3); White Blood Cell 5.6 10^3/uL (4.4-10.8)
[2019-07-27 14:28] LABS: Albumin 3.4 g/dL (3.4-5.0); Anion Gap 6 (5-15); Blood Urea Nitrogen 13 mg/dL (7-18); Calcium 8.5 mg/dL (8.5-10.1); Carbon Dioxide 24 mmol/L (21-32); Chloride 113 mmol/L (98-107); Glucose 89 mg/dL (74-106); Potassium 3.1 mmol/L (3.5-5.1); Sodium 143 mmol/L (136-145)
[2019-07-27 14:34] LABS: Alanine Aminotransferase 40 U/L (16-61); Alkaline Phosphatase 98 U/L (45-117); Aspartate Aminotransferase 32 U/L (15-37); BUN/Creatinine Ratio 17.8; Bilirubin, Total 0.6 mg/dL (0.2-1.0); GFR African American 140 mL/min; GFR Non-African American 116 mL/min; Total Protein 6.7 g/dL (6.4-8.2)
[2019-07-27 14:48] LABS: INR 0.97 (0.9-1.15); Partial Thromboplastin Time 28.2 sec (23.64-32.05)
[2019-07-27] MEDS ORDERED: MORPHINE SULF INJ 2 MG/ML SYRINGE 1ML IV PRN (17:00)
[2019-07-27] MEDS ORDERED: NITROGLYCERIN 0.4 MG SL TAB SL PRN (17:00)
--- NOTE | 2019-07-27 18:15 | NUR ---
Telemetry admit from GENOVEVA DOYLE admitted to Telemetry unit after SBAR received. Patient oriented to Clarita Miller primary RN, unit, room, bed, and unit policies regarding patient care and visiting hours. Patient now on continuous telemetry monitoring, tele box # 36 and telemetry reading on arrival to unit is SR 68. Patient placed on bedside oxygen @3L via NC, weighed by bedscale and encouraged to call if they need something. All questions and concerns addressed, patient verbalized understanding. Wound care photos taken, to left FA, left AC, left foot and right foot, right back, see assessment
--- NOTE | 2019-07-27 19:30 | NUR ---
Opening Shift Note Assumed care of patient, awake and alert. No S/S of distress/SOB or pain. Instructed on POC and to call for assist PRN, will continue to monitor for changes Q1hr and PRN.
[2019-07-27 22:00] VITALS: BP 129/87
--- NOTE | 2019-07-28 00:15 | NUR ---
Spoke to Dr. Beatriz Diop and received new orders. Will input new orders accordingly.
[2019-07-28] MEDS ORDERED: HYDROcodone-ACET 5/325MG TAB PO PRN (00:30)
[2019-07-28 04:35] LABS: Urine WBC None Seen /hpf (0 - 3)
[2019-07-28 05:00] VITALS: BP 108/65
[2019-07-28 05:04] LABS: Urine Bacteria NONE SEEN /hpf (None Seen); Urine Blood Negative /uL (Negative); Urine Specific Gravity 1.021 (1.001-1.035)
[2019-07-28] MEDS: LEVOTHYROXINE SODIUM 50 MCG TAB PO SCH (06:31)
[2019-07-28 07:16] LABS: Basophils # (auto) 0.1 uL; Basophils % (auto) 1.7 % (0.0-2.0); Eosinophils # (auto) 0 uL; Eosinophils % (auto) 0.8 % (0.0-7.0); Hematocrit 40.2 % (41.0-53.0); Hemoglobin 14.1 g/dL (13.5-17.5); Lymphocytes # (auto) 0.9 uL; Mean Corpuscular Hemoglobin 31.4 pg (28.0-32.0); Mean Corpuscular Volume 89.9 fL (80.0-100.0); Monocytes # (auto) 0.6 uL; Neutrophils # (auto) 4.3 uL; Neutrophils % (auto) 72.5 % (37.0-80.0); Platelet Count (auto) 271 10^3/uL (140-450); Red Blood Cells 4.47 10^6/uL (4.5-5.90); Red Cell Distribution Width 14.6 % (11.8-14.3); White Blood Cell 5.9 10^3/uL (4.4-10.8)
--- NOTE | 2019-07-28 07:20 | NUR ---
Opening Shift Note Assumed care of patient, resting in bed with eyes closed, awoken by name. No S/S of distress/SOB, no pain noted or reported. Respirations are even and unlabored on 4L O2 via NC. Updated on POC and instructed to call for assistance as needed, patient verbalized understanding. Bed locked in lowest position, side rails up x2, call light within reach, bed alarm on for safety. Will continue to monitor for changes Q1hr and PRN.
[2019-07-28 07:35] LABS: Anion Gap 5 (5-15); BUN/Creatinine Ratio 19.5; Blood Urea Nitrogen 16 mg/dL (7-18); Calcium 8.7 mg/dL (8.5-10.1); Carbon Dioxide 28 mmol/L (21-32); Chloride 113 mmol/L (98-107); GFR African American 122 mL/min; GFR Non-African American 101 mL/min; Glucose 135 mg/dL (74-106); Potassium 3.6 mmol/L (3.5-5.1); Sodium 146 mmol/L (136-145)
[2019-07-28 09:00] VITALS: BP 103/62
--- NOTE | 2019-07-28 09:20 | NUR ---
MRSA SWAB SENT TO LAB
[2019-07-28] MEDS: POTASSIUM CHL 10 Meq TABLET PO SCH (10:30)
[2019-07-28] MEDS: FLUoxetine HCL 20 MG CAP PO SCH (10:30)
[2019-07-28] MEDS: LEVETIRACETAM 500 MG TAB PO SCH ×2 (10:30→22:11)
[2019-07-28 13:00] VITALS: BP 106/65
--- NOTE | 2019-07-28 14:45 | NUR ---
WOUND CARE NOTE: Wound care consult received from nursing due to multiple skin tears. Patient is a 64 yo male admitted for pneumonia. Patient was recently discharged from [facility] and came up to hospital after a fall at home. Patient with a history of anxiety, COPD, depression, hyperlipidemia and hypertension. Reviewed photos with bedside RN, Naina. Patient is alert and denies pain. Last Dennis score is 17. Patient with several small skin tears and abrasions from fall. No pressure injuries noted. RECOMMENDATIONS: Nursing to cleanse skin tears with NS, pat dry, apply THERAHONEY GEL, cover with OPTIFOAM GENTLE, change every three days/PRN; no further need for wound care team.
--- NOTE | 2019-07-28 15:45 | NUR ---
assessment Patient is a 64 year old male who is alert and oriented. Patients cognitive abilities are intact. Prior to admission patient lived home with his sister for a few days and functioned with assistance before coming back to the hospital. Per patient he will need SNF placement on discharge. Patient was informed that he may have to go down the hill for SNF. Patient agrees. Patient has a fww cane and wheelchair for home use. Patients PCP is Dr Botello. I informed patient he has a right to speak to a social work program coordinator regarding all care. I informed patient he has a right to participate in any and all discharge planning. Patient has a POA and advanced directive. Patient verbalized understanding and agreed to discharge plan. Addendum: 07/28/19 at 1548 by Albertina TATE Amended: Links added.
[2019-07-28 17:00] VITALS: BP 121/77
[2019-07-28] MEDS: TAMSULOSIN HYDROCHLORIDE 0.4 MG CAP PO SCH (18:20)
--- NOTE | 2019-07-28 18:22 | NUR ---
D/C Planning Per consult for SNF placement for physical therapy. Contacted and faxed medical records to [facility], [facility], [facility] and [facility]. [facility], [facility] and [facility] where unable to accept Pt. Per Terrence from [place] Ph:) Fax:) Pt has been accepted to room [address] Foley. Informed Physical therapist Robby evaluation notes are needed for insurance to authorized a skill need. Contacted [facility] ph:( [phone]) Fax:( [phone]) faxed medical records. Advised Aleta from [facility] Physical therapy where pending. Followed up call to Physical therapist spoke to research study assistant PT and advised him notes where not observed in Pt chart. Informed Mariam. Per Mariam Bustamante stated notes will be added within 10 min. Followed up call to [facility] at 16:40 spoke to Aleta. Per Aleta from [facility] stated referral will be given to banjo repair person and they will work on authorization tomorrow 07/29/19. Contacted [facility] Ph:( [phone]) spoke to Amanda. Advised Amanda to set up transportation on will call and to contact RN on Central ext. [phone]. Addendum: 07/28/19 at 1827 by OZZIE RAMSEY Amended: Links added.
[2019-07-28 22:00] VITALS: BP 108/63
[2019-07-28] MEDS: PRAVASTATIN SODIUM 20 MG TAB PO SCH (22:11)
[2019-07-28] MEDS: MIRTAZAPINE 30 MG TAB PO SCH (22:11)
[2019-07-28 23:11] VITALS: BP 121/77
[2019-07-29 05:00] VITALS: BP 127/78
[2019-07-29] MEDS: ALBUTEROL SULF 2.5 MG/0.5ML(0.5%) NEB SOLN NEB PRN ×3 (06:20→12:16)
[2019-07-29] MEDS: LEVOTHYROXINE SODIUM 50 MCG TAB PO SCH (06:20)
[2019-07-29 09:00] VITALS: BP 129/77
[2019-07-29] MEDS: LEVETIRACETAM 500 MG TAB PO SCH ×2 (09:18→22:29)
[2019-07-29] MEDS: FLUoxetine HCL 20 MG CAP PO SCH (09:18)
[2019-07-29] MEDS: POTASSIUM CHL 10 Meq TABLET PO SCH (09:19)
[2019-07-29] MEDS ORDERED: IOHEXOL 350 MG/ML 100ML IJ ONE ×2 (12:25→13:03)
[2019-07-29 13:00] VITALS: BP 117/84
[2019-07-29 17:00] VITALS: BP 124/80
[2019-07-29] MEDS ORDERED: NICOTINE 14 MG/24HR TOPICAL PATCH TD ONE (17:00)
[2019-07-29] MEDS: TAMSULOSIN HYDROCHLORIDE 0.4 MG CAP PO SCH (17:59)
--- NOTE | 2019-07-29 18:40 | NUR ---
RECEIVED A CALL FROM [facility] TO REPORT CHEST CT WITH CONTRAST RESULTS OF POSITIVE BILATERAL PE, WILL CALL PCP TO REPORT RESULTS.
[2019-07-29] MEDS ORDERED: HEPARIN SODIUM (PORCINE) 5000 UNITS/ML 1ML VIAL IV ONE (18:45)
--- NOTE | 2019-07-29 18:45 | NUR ---
RECEIVED CALL FROM DR. LANCASTER / PULMONOLOGY TO INQUIRE IF PT HAS BEEN STARTED ON HEPARIN FOR THE PE, DOCTOR INFORMED THAT RESULTS JUST RECEIVED AND WILL CALL DR. Beatriz GOYAL TO REPORT IT. PER DR. LANCASTER START PT ON HEPARIN PER PHARMACY PROTOCOL AND ASK DR. Beatriz GOYAL IF PT NEED AN ECHO.
--- NOTE | 2019-07-29 18:50 | NUR ---
CALL DR. Beatriz GOYAL TO REPORT THE POSITIVE RESULTS OF THE PE OF CHEST CT, ORDERS RECEIVED TO START PT ON HEPARIN PER PHARMACY PROTOCOL, ASKED DR. Beatriz GOYAL IF PT NEED AN ECHO, PER DR. Beatriz GOYAL NO NEED FOR AN ECHO AT THIS TIME.
[2019-07-29 19:32] LABS: Basophils # (auto) 0.1 uL; Eosinophils # (auto) 0.1 uL; Eosinophils % (auto) 1.8 % (0.0-7.0); Hematocrit 41.6 % (41.0-53.0); Lymphocytes # (auto) 1.4 uL; Lymphocytes % (auto) 21.9 % (10.0-50.0); Mean Corpuscular Hemoglobin 31.1 pg (28.0-32.0); Mean Corpuscular Hgb Conc. 33.6 g/dL (32.0-36.0); Mean Corpuscular Volume 92.6 fL (80.0-100.0); Monocytes # (auto) 0.6 uL; Monocytes % (auto) 9.8 % (0.0-12.0); Neutrophils # (auto) 4.2 uL; Neutrophils % (auto) 65.5 % (37.0-80.0); Platelet Count (auto) 277 10^3/uL (140-450); Red Blood Cells 4.49 10^6/uL (4.5-5.90); Red Cell Distribution Width 14.7 % (11.8-14.3); White Blood Cell 6.3 10^3/uL (4.4-10.8)
[2019-07-29 19:39] LABS: INR 1.02 (0.9-1.15); Partial Thromboplastin Time 28.1 sec (23.64-32.05)
[2019-07-29] MEDS: HEPARIN DRIP/D5W 100UNITS/ML 250 ML IV SCH (20:30)
[2019-07-29 22:00] VITALS: BP 112/73
[2019-07-29] MEDS: PRAVASTATIN SODIUM 20 MG TAB PO SCH (22:30)
[2019-07-29] MEDS: MIRTAZAPINE 30 MG TAB PO SCH (22:30)
[2019-07-30 02:20] LABS: Basophils # (auto) 0.1 uL; Basophils % (auto) 1.1 % (0.0-2.0); Eosinophils # (auto) 0.1 uL; Eosinophils % (auto) 1.8 % (0.0-7.0); Hematocrit 38.9 % (41.0-53.0); Hemoglobin 13.7 g/dL (13.5-17.5); Lymphocytes # (auto) 1.4 uL; Lymphocytes % (auto) 23.8 % (10.0-50.0); Mean Corpuscular Hemoglobin 31.8 pg (28.0-32.0); Mean Corpuscular Hgb Conc. 35.1 g/dL (32.0-36.0); Mean Corpuscular Volume 90.4 fL (80.0-100.0); Monocytes # (auto) 0.6 uL; Neutrophils # (auto) 3.8 uL; Neutrophils % (auto) 63.3 % (37.0-80.0); Platelet Count (auto) 277 10^3/uL (140-450); Red Cell Distribution Width 14.6 % (11.8-14.3); White Blood Cell 6.1 10^3/uL (4.4-10.8)
[2019-07-30 02:37] LABS: INR 0.98 (0.9-1.15); Partial Thromboplastin Time 28.4 sec (23.64-32.05)
--- NOTE | 2019-07-30 03:39 | NUR ---
PTT < 35 AND HEPRIN 5,000 UNITS IV ONCE GIVEN PER PROTOCOL.
[2019-07-30] MEDS ORDERED: HEPARIN SODIUM (PORCINE) 5000 UNITS/ML 1ML VIAL IV ONE ×2 (03:45→11:30)
[2019-07-30 05:00] VITALS: BP 119/68
--- NOTE | 2019-07-30 06:10 | NUR ---
Respiratory note: PATIENT ASSESSED FOR PRN MED-NEB TX. MED-NEB NOT INDICATED AT THIS TIME PATIENT IS IN NO ACUTE RESPIRATORY DISTRESS AND DENIES NEED. PATIENT INSTRUCTED TO CALL FOR RT IF HE FEELS THE NEED FOR TX AT A LATER TIME.
[2019-07-30] MEDS: LEVOTHYROXINE SODIUM 50 MCG TAB PO SCH (06:35)
[2019-07-30 08:27] VITALS: BP 122/71
[2019-07-30 09:02] LABS: INR 0.97 (0.9-1.15); Partial Thromboplastin Time 33.9 sec (23.64-32.05)
--- NOTE | 2019-07-30 10:00 | NUR ---
D/C Planning Followed up call to [facility] spoke to Ros regarding SNF authorization. Per Ros from [facility] authorization for SNF is [id number].
[2019-07-30] MEDS: POTASSIUM CHL 10 Meq TABLET PO SCH (10:03)
[2019-07-30] MEDS: FLUoxetine HCL 20 MG CAP PO SCH (10:03)
[2019-07-30] MEDS: LEVETIRACETAM 500 MG TAB PO SCH ×2 (10:03→22:31)
[2019-07-30] MEDS: NICOTINE 14 MG/24HR TOPICAL PATCH TD SCH (10:06)
[2019-07-30 12:07] VITALS: BP 116/74
--- NOTE | 2019-07-30 13:30 | NUR ---
IV removal PT'S IV ALARM FOR OCCLUSION IS CONSTANTLY COMING ON WHENEVER PT BENDS HIS ARM. PT IS ON HEPARIN DRIP AND I HAD TO REPEATEDLY RESET THE IV PUMP. TALKED TO PT ABOUT SWITCHING HIS IV SITE. PT AGREED. IV DC'd with clean sterile technique, catheter fully intact. Pressure dressing applied to site. Patient tolerated well. NOTE:
--- NOTE | 2019-07-30 14:00 | NUR ---
IV insertion IV access obtained, via clean sterile technique by inserting 22 gauge catheter at LEFT FOREARM after 2 attempt(s). IV secured properly. No trauma to site. Patient tolerated well. NOTE:
[2019-07-30] MEDS: HEPARIN DRIP/D5W 100UNITS/ML 250 ML IV SCH (16:45)
[2019-07-30 17:00] VITALS: BP 108/72
[2019-07-30] MEDS: TAMSULOSIN HYDROCHLORIDE 0.4 MG CAP PO SCH (18:15)
--- NOTE | 2019-07-30 18:48 | NUR ---
Rounds Patient awake and alert. No S/S of distress/SOB or pain. Will continue to monitor changes q1hr and PRN.
[2019-07-30 20:47] LABS: INR 1.02 (0.9-1.15)
--- NOTE | 2019-07-30 20:50 | NUR ---
Critical APTT lab called with a critical APTT of 122.1. Will hold heparin drip and restart in 1 hour decreasing the rate by 3ml/hour PER PROTOCOL.
[2019-07-30 20:51] LABS: Partial Thromboplastin Time 122.1 sec (23.64-32.05)
[2019-07-30 21:00] VITALS: BP 113/79
[2019-07-30] MEDS: ALBUTEROL SULF 2.5 MG/0.5ML(0.5%) NEB SOLN NEB PRN (21:42)
--- NOTE | 2019-07-30 21:51 | NUR ---
Restarted Heparin and decreased rate to 17ml/hour, 3ml less than the previous rate Per protocol.
[2019-07-30] MEDS: PRAVASTATIN SODIUM 20 MG TAB PO SCH (22:36)
[2019-07-30] MEDS: MIRTAZAPINE 30 MG TAB PO SCH (22:37)
[2019-07-31 05:00] VITALS: BP 107/74
--- NOTE | 2019-07-31 05:21 | NUR ---
Called Lab to follow up on PTT lab draw. Lab has not received the blood and will contact grocery stocker.
[2019-07-31] MEDS: LEVOTHYROXINE SODIUM 50 MCG TAB PO SCH (06:17)
--- NOTE | 2019-07-31 06:32 | NUR ---
Called Lab again to follow up on PTT lab draw. Lab has not received the blood and will again contact nurses director assigned to unit.
--- NOTE | 2019-07-31 06:37 | NUR ---
Lab at bedside
[2019-07-31] MEDS: ALBUTEROL SULF 2.5 MG/0.5ML(0.5%) NEB SOLN NEB PRN ×2 (06:50→18:34)
[2019-07-31 07:33] LABS: INR 1.06 (0.9-1.15)
--- NOTE | 2019-07-31 07:35 | NUR ---
Endorsed care to day shift RN. Patient in bed asleep with no signs of distress/sob/pain. IV patent with heparin running at 17ml/hour.
--- NOTE | 2019-07-31 07:45 | NUR ---
Opening Shift Note Assumed care of patient, awake, alert and oriented x4. Patient is on 3L NC, no S/S of distress/SOB or pain. Bed at lowest locked position, bed side rails up x2 and call light within reach. Instructed on POC and to call for assist PRN, will continue to monitor for changes Q1hr and PRN.
[2019-07-31 07:53] LABS: Partial Thromboplastin Time 88.7 sec (23.64-32.05)
[2019-07-31 08:00] VITALS: BP 101/67
--- NOTE | 2019-07-31 08:20 | NUR ---
IV Heparin Drip started at 15mls/hr. Pharmacist aware.
[2019-07-31] MEDS: HEPARIN DRIP/D5W 100UNITS/ML 250 ML IV SCH (08:29)
[2019-07-31] MEDS: LEVETIRACETAM 500 MG TAB PO SCH ×2 (09:06→22:23)
[2019-07-31] MEDS: POTASSIUM CHL 10 Meq TABLET PO SCH (09:06)
[2019-07-31] MEDS: FLUoxetine HCL 20 MG CAP PO SCH (09:06)
[2019-07-31] MEDS: NICOTINE 14 MG/24HR TOPICAL PATCH TD SCH (09:08)
[2019-07-31] MEDS ORDERED: HEPARIN DRIP/D5W 100UNITS/ML 250 ML IV SCH (09:15)
--- NOTE | 2019-07-31 12:15 | NUR ---
ROUNDS Repositioned patient, patient sitting up in bed having lunch . No s/s of distress noted/stated. Will continue to monitor.
[2019-07-31 13:00] VITALS: BP 105/67
[2019-07-31] MEDS: APIXABAN 5 MG TAB PO SCH ×2 (16:33→22:23)
[2019-07-31 17:00] VITALS: BP 105/73
[2019-07-31] MEDS: TAMSULOSIN HYDROCHLORIDE 0.4 MG CAP PO SCH (18:17)
--- NOTE | 2019-07-31 18:51 | NUR ---
closing shift note Patient is comfortably sitting up in bed on 2 L NC, no s/s of distress/SOB noted. No c/o pain. Bed is at lowest locked position, bed side rails up x2 and kathia light within reach. Will endorse care to NOC RN.
--- NOTE | 2019-07-31 19:30 | NUR ---
Opening Shift Note Assumed care of patient, awake and alert. No S/S of distress/SOB or pain. Instructed on POC and to call for assist PRN; VU. This RN will continue to monitor for changes Q1hr and PRN. Bed in low position with rails up at HOB. Call light by pt's hand on the bed. Addendum: 07/31/19 at 2 by NICK BUCHANAN RN Above not entered on wrong pt.
--- NOTE | 2019-07-31 20:21 | NUR ---
Xanax 1mg po taken in to pt as requested. Pt in semi- position toward mid area of bed though HOB in high Cruz's. Fan blowing gently across bed; repositioned as directed by pt. This RN explained difference in O2 flow of here cannula at home and the oxymizer here that she is receiving higher oxygen with lower flow therefore less pressure. Encouraged her to remember this to help decrease her anxiety. Pt VU. Meal still on OBT at side of bed within pt's reach. Pt states she is to have increased O2 with eating and amb to BR. Pt states she will eat later; she is expecting surgery tomorrow and states the small black electrical fan on her bedrail (currently turned off) must be on when she awakens in recovery area after surgery. Addendum: 07/31/19 at 211 by NICK BUCHANAN RN Above note entered on wrong pt. Addendum: 08/01/19 at 1930 by NICK BUCHANAN RN Above note entered on wrong pt.
[2019-07-31 22:00] VITALS: BP 113/71
[2019-07-31] MEDS: MIRTAZAPINE 30 MG TAB PO SCH (22:23)
[2019-07-31] MEDS: PRAVASTATIN SODIUM 20 MG TAB PO SCH (22:23)
[2019-08-01] VITALS (7 sets, daily range): BP systolic 95–117; BP diastolic 68–74
[2019-08-01] MEDS: LEVOTHYROXINE SODIUM 50 MCG TAB PO SCH (06:20)
[2019-08-01] MEDS: ALBUTEROL SULF 2.5 MG/0.5ML(0.5%) NEB SOLN NEB PRN ×2 (06:48→20:36)
--- NOTE | 2019-08-01 07:44 | NUR ---
Opening Shift Note Assumed care of patient, awake, alert and oriented x4. Patient is on 2L NC, no S/S of distress/SOB or pain. Patient is having breakfast. Bed at lowest locked position, bed side rails up x2 and call light within reach. Instructed on POC and to call for assist PRN, will continue to monitor for changes Q1hr and PRN.
[2019-08-01] MEDS: LEVETIRACETAM 500 MG TAB PO SCH ×2 (08:27→22:19)
[2019-08-01] MEDS: FLUoxetine HCL 20 MG CAP PO SCH (08:27)
[2019-08-01] MEDS: POTASSIUM CHL 10 Meq TABLET PO SCH (08:27)
[2019-08-01] MEDS: APIXABAN 5 MG TAB PO SCH ×2 (10:00→22:19)
[2019-08-01] MEDS: NICOTINE 14 MG/24HR TOPICAL PATCH TD SCH (10:00)
[2019-08-01] MEDS ORDERED: APIXABAN 5 MG TAB PO SCH (10:00)
--- NOTE | 2019-08-01 12:37 | NUR ---
NUTRITION ASSESSMENT NOTES Please refer to link notes of nutrition screen form filed under the intervention section of the plan of care for further details. Est. Needs: 1950 kcal to 2450 kcal (25-30 kcal/kgBW), 78 gms to 98 gms pro (0.8-1.0 gms/kgBW). Will continue to monitor pertinent labs and reassess nutrient need prn Thank you. Addendum: 08/01/19 at [address] Amended: Links added.
[2019-08-01] MEDS: TAMSULOSIN HYDROCHLORIDE 0.4 MG CAP PO SCH (18:22)
--- NOTE | 2019-08-01 19:27 | NUR ---
closing shift note Patient is comfortably sitting up in bed on 2 L NC, no s/s of distress/SOB noted. No c/o pain. Bed is at lowest locked position, bed side rails up x2 and kathia light within reach. Care endorsed to NOC RN.
--- NOTE | 2019-08-01 19:30 | NUR ---
Opening Shift Note Assumed care of patient, awake and alert. No S/S of distress/SOB. Pt leaning over in bed. When asked if he had pain, he replied that he did in his shoulder. This RN stated call would be made for assist him to right him in the bed. Pt in high Cruz's position. Pt immediately started moving and righted himself. Instructed on POC and to call for assist PRN; pt VU. This RN will continue to monitor for changes Q1hr and PRN. Bed in low position with rails up at [facility]. Call light by pt on the bed.
[2019-08-01] MEDS: PRAVASTATIN SODIUM 20 MG TAB PO SCH (22:19)
[2019-08-01] MEDS: MIRTAZAPINE 30 MG TAB PO SCH (22:19)
[2019-08-02 05:24] VITALS: BP 94/57
[2019-08-02] MEDS: LEVOTHYROXINE SODIUM 50 MCG TAB PO SCH (06:12)
--- NOTE | 2019-08-02 07:44 | NUR ---
Opening Patient in bed, awake, bed in lowest position, call light within reach. No distress noted at this time. WIll f/u with morning assessment. Patient is pending a transfer to SN[facility] according to LEA Domingo, will f/u with this and check the recent notes. Will continue to monitor this patient.
[2019-08-02 09:00] VITALS: BP 106/73
[2019-08-02] MEDS: POTASSIUM CHL 10 Meq TABLET PO SCH (09:36)
[2019-08-02] MEDS: APIXABAN 5 MG TAB PO SCH ×2 (09:36→22:29)
[2019-08-02] MEDS: NICOTINE 14 MG/24HR TOPICAL PATCH TD SCH (09:36)
[2019-08-02] MEDS: LEVETIRACETAM 500 MG TAB PO SCH ×2 (09:36→22:29)
[2019-08-02] MEDS: FLUoxetine HCL 20 MG CAP PO SCH (09:36)
[2019-08-02 13:00] VITALS: BP 102/72
--- NOTE | 2019-08-02 15:26 | NUR ---
RT NOTE: PT. ASSESSED FOR PRN BREATHING TX. TX. NOT INDICATED AT THIS TIME. NO S/S OF RESPIRATORY DISTRESS NOTED. PT. HR. 83, RR 18, POX 92% 2L N/C. PT. AWARE TO NOTIFY RN IF BREATHING TX. IS NEEDED.
--- NOTE | 2019-08-02 15:44 | NUR ---
PAGING DR Valery GOYAL PER ALL NOTES REGARDING TRANSFER HOWEVER NO CURRENT ORDERS.
[2019-08-02 17:00] VITALS: BP 131/89
[2019-08-02] MEDS: TAMSULOSIN HYDROCHLORIDE 0.4 MG CAP PO SCH (18:00)
--- NOTE | 2019-08-02 19:30 | NUR ---
Opening Shift Note Assumed care of patient. Patient awake and alert. No S/S of distress/SOB or pain. Instructed on POC and to call for assist PRN, will continue to monitor for changes. Bed locked in lowest position and bed rails up x2. Call light within reach.
[2019-08-02 22:00] VITALS: BP 105/63
[2019-08-02] MEDS: MIRTAZAPINE 30 MG TAB PO SCH (22:29)
[2019-08-02] MEDS: PRAVASTATIN SODIUM 20 MG TAB PO SCH (22:29)
--- NOTE | 2019-08-02 22:40 | NUR ---
Found patient on room air upon entrance into room. Placed oxygen NC back onto patient. At this time, RT walked in with an oxygen saturation monitor. Upon O2 Sat. assessment, O2 Sat: 91. Oxygen then increased to 3lpm NC as O2 sats. also increased to 92-93.
--- NOTE | 2019-08-02 22:45 | NUR ---
Respiratory note: AT BEDSIDE TO ASSESS PT FOR PRN TX. TX NOT INDICATED AT THIS TIME. BS ARE CLEAR DIMINISHED T/O. POX 91-92% ON 3LPM NC. RN OLIVIER AT BEDSIDE. PT AWARE HE CAN HAVE ME PAGED AT ANY TIME IF HAS A CONCERN WITH HIS BREATHING.
[2019-08-03 05:59] VITALS: BP 98/64
[2019-08-03] MEDS: LEVOTHYROXINE SODIUM 50 MCG TAB PO SCH (06:18)
--- NOTE | 2019-08-03 07:45 | NUR ---
opening patient asleep in bed, bed in lowest position, call light within reach. No distress noted at this time. Will f/u with morning assessment. [facility] will continue to follow up on this plan with the social workers. will continue to monitor this patient
--- NOTE | 2019-08-03 08:07 | NUR ---
Respiratory note: AT BEDSIDE TO ASSESS PT FOR PRN TX. PT WAS AWAKE AND ALERT, NO RESP DISTRESS NOTED.TX NOT INDICATED AT THIS TIME. BS ARE CLEAR DIMINISHED T/O. POX 91-92% ON ROOM AIR. PT AWARE HE CAN HAVE ME PAGED AT ANY TIME IF HAS A CONCERN WITH HIS BREATHING.
[2019-08-03 08:45] VITALS: BP 103/64
[2019-08-03] MEDS: FLUoxetine HCL 20 MG CAP PO SCH (10:00)
[2019-08-03] MEDS: APIXABAN 5 MG TAB PO SCH ×2 (10:00→21:14)
[2019-08-03] MEDS: POTASSIUM CHL 10 Meq TABLET PO SCH (10:00)
[2019-08-03] MEDS: NICOTINE 14 MG/24HR TOPICAL PATCH TD SCH (10:00)
[2019-08-03] MEDS: LEVETIRACETAM 500 MG TAB PO SCH ×2 (10:00→21:14)
[2019-08-03 13:23] VITALS: BP 108/74
--- NOTE | 2019-08-03 16:01 | NUR ---
NURSE NOTE PAGING IDALIA TATE TO GET UPDATED ON STATUS OF TRANSFER
[2019-08-03 16:57] VITALS: BP 109/69
[2019-08-03] MEDS: TAMSULOSIN HYDROCHLORIDE 0.4 MG CAP PO SCH (18:00)
--- NOTE | 2019-08-03 19:30 | NUR ---
Opening Shift Note Assumed care of patient. Patient is awake and alert. No S/S of distress/SOB or pain. Oxygen on 3lpm NC. Instructed on POC and to call for assist PRN, will continue to monitor for changes. Bed locked in lowest position and bed rails up x2. Call light within reach.
[2019-08-03] MEDS: MIRTAZAPINE 30 MG TAB PO SCH (21:14)
[2019-08-03] MEDS: PRAVASTATIN SODIUM 20 MG TAB PO SCH (21:14)
--- NOTE | 2019-08-03 21:25 | NUR ---
RT NOTE PT WAS SEEN BY RT FOR PRN HHN TX. PT IS SLEEPING AND SHOWS NO S/S OF SOB OR DISTRESS. HR 70, RR 20, BS CLEAR/DIM, POX 95% ON 2L NASAL CANNULA. O PRN TX INDICATED AT THIS TIME. CONT ORDERED Addendum: 08/03/19 at 2143 by Karla Jennings RT Amended: Links added.
[2019-08-03 22:00] VITALS: BP 110/63
--- NOTE | 2019-08-03 23:58 | NUR ---
Beatriz Diop at [facility] Addendum: 08/04/19 at 0006 by JENNIFER GALLEGO RN RN Kimber ritter
--- NOTE | 2019-08-04 02:25 | NUR ---
battery technician called to make me aware of patient's run of P-SVT at 166bpm.
[2019-08-04 03:41] VITALS: BP 110/63
[2019-08-04 04:44] VITALS: BP 111/73
[2019-08-04] MEDS: LEVOTHYROXINE SODIUM 50 MCG TAB PO SCH (06:13)
--- NOTE | 2019-08-04 08:00 | NUR ---
Opening Shift Note Assumed care of patient, awake, alert, and oriented x4. No S/S of distress/SOB or pain. IV is in right forearm, 22 gauge and is asymptomatic, intact, patent, and saline locked. Bed is locked and in lowest position and call light is within reach. Instructed on POC and to call for assist PRN, and patient verbalized understanding. Will continue to monitor for changes Q1hr and PRN.
[2019-08-04 09:00] VITALS: BP 104/63
--- NOTE | 2019-08-04 09:00 | NUR ---
Lizett from [employer] informed me that transport for patient would be here at 1100.
--- NOTE | 2019-08-04 09:07 | NUR ---
D/C Planning Followed up call to [facility] spoke to Terrence. Advised Terrence from [facility] Pt will be arriving to the facility today. Contacted [facility] Ph:) Fax:) faxed transportation request form to arrange picker tender helper time at 11:00. Advised YECENIA Lamb. Addendum: 08/04/19 at 0911 by OZZIE TATE Amended: Links added.
[2019-08-04] MEDS: ALBUTEROL SULF 2.5 MG/0.5ML(0.5%) NEB SOLN NEB PRN (09:23)
[2019-08-04] MEDS: POTASSIUM CHL 10 Meq TABLET PO SCH (10:41)
[2019-08-04] MEDS: APIXABAN 5 MG TAB PO SCH (10:41)
[2019-08-04] MEDS: LEVETIRACETAM 500 MG TAB PO SCH (10:41)
[2019-08-04] MEDS: FLUoxetine HCL 20 MG CAP PO SCH (10:42)
[2019-08-04] MEDS: NICOTINE 14 MG/24HR TOPICAL PATCH TD SCH (10:48)
[2019-08-04 12:43] VITALS: BP 103/60
--- NOTE | 2019-08-04 13:36 | NUR ---
Called and gave SBAR to receiving RN at [facility].
--- NOTE | 2019-08-04 15:15 | NUR ---
Discharge instructions given as ordered. Encourage to follow up with PMD as instructed. All questions and concerns addressed. Patient verbalized understanding. Medication reconciliation form completed and copy given to patient. IV removed with catheter intact, pressure dressing applied. Telemetry unit returned to ICU. Patient taken to transport vehicle via GURNEY with all personal belongings, accompanied by staff and two transport team members. No distress noted at time of departure.
[2019-08-07] MEDS ORDERED: APIXABAN 5 MG TAB PO SCH (10:00)
[2019-08-23] MEDS ORDERED: APIXABAN 5 MG TAB PO SCH (10:00)
== END 2019-08-04 13:10 | DRG 175 ==
LOC: EDBD 11:25 → ER 11:25 → TELE 11:26 → TELE-CENTR 18:12
PROVIDERS: ADMIT Specialist; ATTEND Specialist
DX: I26.99 Other pulmonary embolism without acute cor pulmonale (principal); J96.21 Acute and chronic respiratory failure with hypoxia; J18.9 Pneumonia, unspecified organism; J44.0 Chronic obstructive pulmonary disease with (acute) lower respiratory infection; J98.11 Atelectasis; R91.1 Solitary pulmonary nodule; R29.6 Repeated falls; E78.5 Hyperlipidemia, unspecified; F32.9 Major depressive disorder, single episode, unspecified; F41.9 Anxiety disorder, unspecified; M54.9 Dorsalgia, unspecified; M54.5 Low back pain; F17.210 Nicotine dependence, cigarettes, uncomplicated; I10 Essential (primary) hypertension; Z74.01 Bed confinement status; Z99.81 Dependence on supplemental oxygen; Z79.01 Long term (current) use of anticoagulants; Z83.3 Family history of diabetes mellitus; Z87.01 Personal history of pneumonia (recurrent); Z90.49 Acquired absence of other specified parts of digestive tract
CPT/HCPCS: 36415; 36600; 70450; 71045; 71250; 71275; 80048; 80053; 81001; 82805; 83605; 83880; 84443; 84484; 85025; 85610; 85730; 87040; 87081; 87086; 94640; 97110; 97116; 97163; 97530; G0378

== ENCOUNTER 2020-02-25 11:41 | Inpatient (IN) | payer OTHER, MEDICAID ==
[~2020-02-25] VITALS: Ht 175.3 cm; Wt 86.6 kg
[2020-02-25] MEDS ORDERED: SODIUM CHLORIDE 0.9% 1,000 ML IVB ONE (11:56)
[2020-02-25 13:06] LABS: Basophils # (auto) 0.1 10 ^3/uL (0-0.2); Basophils % (auto) 0.5 % (0.0-2.0); Eosinophils # (auto) 0.1 10 ^3/uL (0-0.8); Eosinophils % (auto) 0.5 % (0.0-7.0); Hematocrit 44.4 % (41.0-53.0); Hemoglobin 14.9 g/dL (13.5-17.5); Lymphocytes # (auto) 1.5 10 ^3/uL (0.4-5.4); Lymphocytes % (auto) 14.8 % (10.0-50.0); Mean Corpuscular Hemoglobin 29.9 pg (28.0-32.0); Mean Corpuscular Hgb Conc. 33.6 g/dL (32.0-36.0); Mean Corpuscular Volume 89.1 fL (80.0-100.0); Monocytes % (auto) 9.8 % (0.0-12.0); Neutrophils # (auto) 7.3 10 ^3/uL (1.6-8.6); Neutrophils % (auto) 74.4 % (37.0-80.0); Nucleated Red Blood Cells % 0.1 %; Platelet Count (auto) 283 10^3/uL (140-450); Red Blood Cells 4.99 10^6/uL (4.5-5.90); Red Cell Distribution Width 14.2 % (11.8-14.3); White Blood Cell 9.9 10^3/uL (4.4-10.8)
[2020-02-25 13:17] LABS: INR 1.08 (0.9-1.15); Partial Thromboplastin Time 27.7 sec (23.64-32.05)
[2020-02-25 13:22] LABS: Albumin 3.5 g/dL (3.4-5.0); Anion Gap 10 (5-15); Blood Urea Nitrogen 34 mg/dL (7-18); Calcium 8.7 mg/dL (8.5-10.1); Carbon Dioxide 32 mmol/L (21-32); Chloride 101 mmol/L (98-107); Glucose 88 mg/dL (74-106); Magnesium 2.4 mg/dL (1.6-2.6); Sodium 143 mmol/L (136-145)
[2020-02-25 13:28] LABS: Alanine Aminotransferase 35 U/L (16-61); Alkaline Phosphatase 106 U/L (45-117); Aspartate Aminotransferase 110 U/L (15-37); BUN/Creatinine Ratio 29.6; Bilirubin, Total 0.9 mg/dL (0.2-1.0); GFR African American 83 mL/min; GFR Non-African American 68 mL/min
[2020-02-25 13:51] LABS: Potassium 2.2 mmol/L (3.5-5.1)
[2020-02-25] MEDS ORDERED: POTASSIUM CHL 20 Meq TABLET PO ONE ×2 (14:15)
[2020-02-25] MEDS ORDERED: POTASSIUM EFFERVESENT TAB 25 MEQ PO ONE (14:45)
[2020-02-25] MEDS ORDERED: MORPHINE SULF INJ 2 MG/ML SYRINGE 1ML IV PRN (15:15)
[2020-02-25] MEDS ORDERED: SOD CHL 0.9%/ KCL 40MEQ 1,000 ML IV ONE (15:15)
[2020-02-25] MEDS ORDERED: NITROGLYCERIN 0.4 MG SL TAB SL PRN (15:15)
[2020-02-25] MEDS: MIRTAZAPINE 30 MG TAB PO SCH (18:51)
[2020-02-25] MEDS: TAMSULOSIN HYDROCHLORIDE 0.4 MG CAP PO SCH (18:51)
--- NOTE | 2020-02-25 19:50 | NUR ---
Telemetry admit from [facility] admitted to Telemetry unit. Patient oriented to CYNDI KAPOOR RN primary RN, unit, room, bed, and unit policies regarding patient care and visiting hours. Seizure, fall, and safety precautions in place. Bed alarm on and call light within reach. Patient now on continuous telemetry monitoring, tele box #55 and telemetry reading on arrival to unit is SR 75 bpm. Patient is fatigue and AOx3. Patient placed on bedside oxygen 3 L NC, weighed by bedscale and encouraged to call if he needs something. All questions and concerns addressed, patient in agreement. Will continue to monitor q1h and prn.
[2020-02-25 20:45] VITALS: BP 110/72
[2020-02-25] MEDS: levETIRAcetam 500 MG TAB PO SCH (21:17)
[2020-02-25] MEDS: ATORVASTATIN 20 MG TAB PO SCH (21:17)
[2020-02-25 22:00] VITALS: BP 110/72
[2020-02-25] MEDS ORDERED: PRAVASTATIN SODIUM 20 MG TAB PO SCH (22:00)
[2020-02-25] MEDS ORDERED: PATIENTS OWN MEDICATION (Lovastatin 1 TAB) PO SCH (22:00)
[2020-02-25] MEDS ORDERED: OMEP20TA PO (23:03)
[2020-02-25] MEDS ORDERED: POTA10TA51 PO (23:05)
[2020-02-26 05:00] VITALS: BP 113/67
--- NOTE | 2020-02-26 05:30 | NUR ---
Patient reports pain Received new order for 06/10 pain to generalized body from on-call hosp. Patient at this time states that he does not want to take any medication for pain. Patient educated on pain relieving medications and discussed with patient how he would like to address his pain. Patient continues to refuse medication for pain. Offered to reposition patient, patient verbalized understanding and in agreement. Patient repositioned at this time. Patient states repositioning at this time provides some relief. Will continue to monitor.
[2020-02-26 05:45] LABS: Basophils # (auto) 0.1 10 ^3/uL (0-0.2); Basophils % (auto) 0.7 % (0.0-2.0); Eosinophils # (auto) 0.1 10 ^3/uL (0-0.8); Eosinophils % (auto) 1.8 % (0.0-7.0); Hematocrit 40.9 % (41.0-53.0); Hemoglobin 14.1 g/dL (13.5-17.5); Lymphocytes # (auto) 1.3 10 ^3/uL (0.4-5.4); Lymphocytes % (auto) 15.6 % (10.0-50.0); Mean Corpuscular Hemoglobin 31.1 pg (28.0-32.0); Mean Corpuscular Hgb Conc. 34.5 g/dL (32.0-36.0); Mean Corpuscular Volume 90.2 fL (80.0-100.0); Monocytes # (auto) 0.8 10 ^3/uL (0-1.3); Monocytes % (auto) 9.7 % (0.0-12.0); Neutrophils # (auto) 6.1 10 ^3/uL (1.6-8.6); Neutrophils % (auto) 72.2 % (37.0-80.0); Platelet Count (auto) 256 10^3/uL (140-450); Red Blood Cells 4.54 10^6/uL (4.5-5.90); White Blood Cell 8.4 10^3/uL (4.4-10.8)
[2020-02-26 05:56] LABS: Calcium 8.2 mg/dL (8.5-10.1)
[2020-02-26 05:58] LABS: BUN/Creatinine Ratio 29.3
[2020-02-26] MEDS ORDERED: HYDROcodone-ACET 10/325MG TAB PO PRN (06:00)
[2020-02-26 06:02] LABS: Potassium 2.6 mmol/L (3.5-5.1)
--- NOTE | 2020-02-26 06:03 | NUR ---
Critical K Received critical for patient. Potassium 2.6. On-call hosp paged. Awaiting call back. Will continue to monitor.
--- NOTE | 2020-02-26 06:12 | NUR ---
Received Call-Back from on-call Hosp Updated on-call hosp on patient status. New orders received (see orders). Will carry out. Will continue to monitor patient.
[2020-02-26] MEDS ORDERED: POTASSIUM CHL 20 Meq TABLET PO ONE ×2 (06:15→11:00)
[2020-02-26] MEDS ORDERED: POTASSIUM CHL 20MEQ/100ML 100 ML IV ONE (06:15)
--- NOTE | 2020-02-26 06:40 | NUR ---
Endorse Second Bag of K+ Will be unable to hang second bag of ordered K+ due to current bag 1/2 of K rider hanging. Will endorse to day shift RN.
--- NOTE | 2020-02-26 07:28 | NUR ---
Opening Shift Note Assumed care of patient, awake and alert. No S/S of distress/SOB or pain. Fall and seizure precautions in place. bed locked and in lowest position with call light in reach. Instructed on POC and to call for assist PRN, will continue to monitor for changes Q1hr and PRN.
--- NOTE | 2020-02-26 08:42 | NUR ---
PT HAS A BOWEL MOVEMENT PT CLEANED UP AND BED LINEN CHANGED. PT TOLERATED WELL.
[2020-02-26 09:10] VITALS: BP 103/76
[2020-02-26] MEDS: FLUoxetine HCL 20 MG CAP PO SCH (09:16)
[2020-02-26] MEDS: levETIRAcetam 500 MG TAB PO SCH ×2 (09:16→21:19)
--- NOTE | 2020-02-26 09:48 | NUR ---
PER NOC SHIFT THERE WAS A SECOND BAG OF POTASSIUM IV ACCORDING TO THE ORDERS ALL OF THE POTASSIUM HAS BEEN GIVEN AND NO OTHER POTASSIUM IS ORDERED.
--- NOTE | 2020-02-26 14:18 | NUR ---
assessment Patient is a 64 year old male who is sleeping. Per patients sister and TICO Rushing prior to admission patient lived home with her and functioned with her assistance. Per Kristan Patient has a fww and a wheelchair for home use. Patient has a SSI income of 1,300 per month. Kristan informed me patient was becoming very weak 2 days prior to admission. Patient kept falling everyday. Per Kristan she called 911 due to the weakness and falls. I informed Kristan of patients ss consult for long distance billing operator placement. Per Kristan she would like patient to go to SNF for rehab to regain his strength. I will call Sharyn KEENE and inform he that I need a ss consult for SNF placment. Per Kristan she prefers [facility]. Per Kristan patient has been to that facility in the past. Kristan verbalized understanding and agreed to discharge plan to SNF for rehab. Addendum: 02/26/20 at 1424 by Albertina TATE Amended: Links added.
--- NOTE | 2020-02-26 14:51 | NUR ---
PT eval orders received. Pt is not appropriate for mobilization at this time due to K+ of 2.6. Will attempt evaluation tomorrow.
[2020-02-26] MEDS ORDERED: ENOXAPARIN SOD 40 MG/0.4 ML SYRINGE SC ONE (15:00)
--- NOTE | 2020-02-26 15:31 | NUR ---
CALLED SISTER VIKRAM RE: HOME OXYGEN AND BLOOD THINNER ACCORDING TO SISTER "YES HE IS ON OXYGEN, BUT FAR THE MEDICINE HE IS ONLY ON THE MEDS THAT YOU HAVE LISTED THERE"
[2020-02-26 17:07] VITALS: BP 109/78
[2020-02-26] MEDS: MIRTAZAPINE 30 MG TAB PO SCH (17:31)
[2020-02-26] MEDS: TAMSULOSIN HYDROCHLORIDE 0.4 MG CAP PO SCH (17:31)
--- NOTE | 2020-02-26 18:28 | NUR ---
MD CH CALLED PER MD KEENE IS TO OBTAIN CONSENTS WITH [facility] AND PREPARE PATIENT FOR PROCEDURE TOMORROW AM AT 0730 Addendum: 02/26/20 at 1844 by REYNA WALKER RN RN INCORRECT PATIENT
--- NOTE | 2020-02-26 19:30 | NUR ---
Opening Shift Note Assumed care of patient, awake and alert. No S/S of distress/SOB or pain. Fall, safety, and seizure precautions are in place. Call light within reach. Instructed on POC and to call for assist PRN, will continue to monitor for changes Q1hr and PRN.
[2020-02-26] MEDS ORDERED: LORazepam 2MG/ML-1ML VIAL IV PRN (20:00)
[2020-02-26 21:05] LABS: Cholesterol 150 mg/dL (< 200); HDL Cholesterol 32 mg/dL (40-59); LDL Cholesterol 97 mg/dL (< 100); Triglycerides 142 mg/dL (< 150)
[2020-02-26] MEDS: ATORVASTATIN 20 MG TAB PO SCH (21:19)
[2020-02-26 21:41] VITALS: BP 103/70
[2020-02-27 04:41] VITALS: BP 108/71
--- NOTE | 2020-02-27 07:30 | NUR ---
ROUNDS/STATUS PT RESTING IN BED AWAKE AND ALERT. PT EATING BREAKFAST INDEPENDENTLY. ASKED IF HE NEEDED ANY ASSISTANCE AND HE REFUSED. PT HAS NO C/O PAIN AND NO S/S OF DISTRESS. BED IN LOW POSITION AND CALL LIGHT IN REACH. POC REVIEWED AND WHITE BOARD FILLED OUT. WILL CONTINUE TO MONITOR
[2020-02-27 09:00] VITALS: BP 104/70
[2020-02-27] MEDS: FLUoxetine HCL 20 MG CAP PO SCH (09:46)
[2020-02-27] MEDS: ASPirin-EC 81 mg tab PO SCH (09:46)
[2020-02-27] MEDS: levETIRAcetam 500 MG TAB PO SCH ×2 (09:47→21:27)
[2020-02-27] MEDS: ENOXAPARIN SOD 40 MG/0.4 ML SYRINGE SC SCH (09:48)
--- NOTE | 2020-02-27 10:29 | NUR ---
TAKEN TO MRI VIA WHEELCHAIR U/S TECH AT BEDSIDE WELL AND WILL RETURN SHORTLY TO COMPLETE A CAROTID.
[2020-02-27 12:10] LABS: Calcium 8.9 mg/dL (8.5-10.1); Potassium 3.2 mmol/L (3.5-5.1)
[2020-02-27 12:12] LABS: BUN/Creatinine Ratio 24.3
[2020-02-27 13:00] VITALS: BP 115/78
[2020-02-27] MEDS ORDERED: POTASSIUM EFFERVESENT TAB 25 MEQ PO ONE (14:30)
[2020-02-27] MEDS: TAMSULOSIN HYDROCHLORIDE 0.4 MG CAP PO SCH (17:55)
[2020-02-27] MEDS: MIRTAZAPINE 30 MG TAB PO SCH (17:55)
[2020-02-27 18:07] VITALS: BP 115/73
--- NOTE | 2020-02-27 20:00 | NUR ---
Opening Shift Note Assumed care of patient, asleep but arousable. Patient is alert but states wanting to sleep. No S/S of distress/SOB or pain. Instructed on POC and to call for assist PRN, will continue to monitor for changes Q1hr and PRN.
[2020-02-27] MEDS: ATORVASTATIN 20 MG TAB PO SCH (21:27)
[2020-02-27 22:00] VITALS: BP 102/63
[2020-02-28 05:00] VITALS: BP 113/68
--- NOTE | 2020-02-28 08:15 | NUR ---
Opening Shift Note Assumed care of patient, awake, alert and oriented. No S/S of distress/SOB or pain. Instructed on POC and to call for assist PRN. Bed locked, in lowest position, call light within reach, seizure precautions in place. Will continue to monitor for changes Q1hr and PRN.
[2020-02-28 09:00] VITALS: BP 156/73
--- NOTE | 2020-02-28 09:11 | NUR ---
ELECTROENCEPHALOGRAM EEG COMPLETED AT BEDSIDE. PRIMARY RN ROSS HARLEY.
[2020-02-28] MEDS: ASPirin-EC 81 mg tab PO SCH (10:38)
[2020-02-28] MEDS: levETIRAcetam 500 MG TAB PO SCH ×2 (10:38→22:24)
[2020-02-28] MEDS: FLUoxetine HCL 20 MG CAP PO SCH (10:38)
[2020-02-28] MEDS: ENOXAPARIN SOD 40 MG/0.4 ML SYRINGE SC SCH (10:39)
[2020-02-28 13:00] VITALS: BP 120/82
--- NOTE | 2020-02-28 16:00 | NUR ---
D/C Planning Per SS consult for SNF placement for physical therapy. Per SW II Albertina order to be faxed to [facility]. Faxed clinical information to [facility]. Per Terrence with [facility] they are not admitting new patient at the moment. Place call to patient sister Kristan and left her voicemail message. Faxed clinical information to [facility], [facility] and [facility]. Cindy with [facility] is requesting a COVID-19 test to be completed. Faxed Clinical information to [facility]. Pending on Facility acceptance.
--- NOTE | 2020-02-28 16:30 | NUR ---
Received a followed up call from Amy with [facility] advising me they will need two (-) COVID-19 test within 24 of each other before accepting patient. Informed RN Kala.
--- NOTE | 2020-02-28 16:49 | NUR ---
DISCHARGE Per Dr Sen, patient to be discharged tomorrow.
[2020-02-28 17:00] VITALS: BP 132/82
[2020-02-28] MEDS: MIRTAZAPINE 30 MG TAB PO SCH (18:01)
[2020-02-28] MEDS: TAMSULOSIN HYDROCHLORIDE 0.4 MG CAP PO SCH (18:01)
--- NOTE | 2020-02-28 19:26 | NUR ---
Care endorsed to YECENIA Garibay, night nurse.
--- NOTE | 2020-02-28 19:49 | NUR ---
RECEIVED PATIENT FROM DAY SHIFT RN. PATIENT RESTING IN BED. NO S/S OF DISTRESS NOTED. DENIED PAIN FOR NOW. REORIENTED PATIENT TIME, PLACE, AND SITUATION. PATIENT VERBALIZED UNDERSTANDING. WILL REMIND HIM LATER NEEDED. POC INSTRUCTED AND ENCOURAGED PATIENT TO CALL FOR ALTERATION TAILOR APPRENTICE IF NEEDED. BED IN LOWEST POSITION WITH SIDE RAILS UP X 2. CALL PIMENTEL WITHIN REACH. ALARM ON. CONTINUE TO MONITOR FOR CHANGES Q1H AND PRN.
--- NOTE | 2020-02-28 21:05 | NUR ---
COVID 19 SWAB COLLECTED AND SENT. CONTINUE CARE. Addendum: 02/28/20 at 2252 by Sadie Zurita RN WRONG TIME
--- NOTE | 2020-02-28 21:43 | NUR ---
DR Valery GOYAL AT BEDSIDE
--- NOTE | 2020-02-28 21:47 | NUR ---
CALLED [facility] FOR THE COVID SWAB. WILL SEND TO [facility] NOW. CONTINUE CARE.
[2020-02-28 22:00] VITALS: BP 100/64
--- NOTE | 2020-02-28 22:05 | NUR ---
COVID 19 SWAB COLLECTED AND SENT. CONTINUE CARE.
[2020-02-28] MEDS: ATORVASTATIN 20 MG TAB PO SCH (22:25)
--- NOTE | 2020-02-28 22:25 | NUR ---
SCHEDULED ORAL MEDICATION ADMINISTERED ORDERED. PATIENT SWALLOWED WELL. NO S/S OF ASPIRATION NOTED. CONTINUE TO MONITOR.
--- NOTE | 2020-02-29 02:16 | NUR ---
PATIENT SLEEPING. NO S/S OF DISTRESS NOTED. CONTINUE CARE.
[2020-02-29 05:00] VITALS: BP 105/61
[2020-02-29 06:12] LABS: BUN/Creatinine Ratio 26.3; Potassium 3.5 mmol/L (3.5-5.1)
[2020-02-29 09:00] VITALS: BP 109/62
[2020-02-29] MEDS: levETIRAcetam 500 MG TAB PO SCH ×2 (10:17→22:04)
[2020-02-29] MEDS: ENOXAPARIN SOD 40 MG/0.4 ML SYRINGE SC SCH (10:17)
[2020-02-29] MEDS: ASPirin-EC 81 mg tab PO SCH (10:17)
[2020-02-29] MEDS: FLUoxetine HCL 20 MG CAP PO SCH (10:17)
--- NOTE | 2020-02-29 11:55 | NUR ---
ROUNDS Dr Sen at bedside for rounds, new orders received and followed through. Informed patient verbalizing pain to right ear, verbalized understanding.
[2020-02-29 13:00] VITALS: BP 110/65
[2020-02-29] MEDS ORDERED: POTASSIUM EFFERVESENT TAB 25 MEQ PO ONE (16:00)
[2020-02-29 16:53] VITALS: BP 104/72
[2020-02-29] MEDS: MIRTAZAPINE 30 MG TAB PO SCH (18:03)
[2020-02-29] MEDS: TAMSULOSIN HYDROCHLORIDE 0.4 MG CAP PO SCH (18:03)
[2020-02-29] MEDS: CARBAMIDE PEROXIDE 6.5% OTIC(EAR) SOLN 15ML RIGHT EAR SCH ×2 (18:37→22:04)
--- NOTE | 2020-02-29 19:21 | NUR ---
Care endorsed to YECENIA Almonte, night nurse.
--- NOTE | 2020-02-29 19:39 | NUR ---
RECEIVED PATIENT FROM DAY SHIFT RN. PATIENT RESTING IN BED. NO S/S OF DISTRESS NOTED. DENIED PAIN FOR NOW. REORIENTED PATIENT TIME, PLACE, AND SITUATION AND REMIND HIM LATER NEEDED. POC INSTRUCTED AND ENCOURAGED PATIENT TO CALL FOR TAILOR FITTER IF NEEDED. BED IN LOWEST POSITION WITH SIDE RAILS UP X 2. CALL PIMENTEL WITHIN REACH. ALARM ON. CONTINUE TO MONITOR FOR CHANGES Q1H AND PRN.
[2020-02-29 21:51] VITALS: BP 103/67
[2020-02-29] MEDS: ATORVASTATIN 20 MG TAB PO SCH (22:04)
--- NOTE | 2020-02-29 22:04 | NUR ---
COVID 19 SWAB COLLECTED AND SENT. CONTINUE CARE.
--- NOTE | 2020-02-29 22:07 | NUR ---
SCHEDULED ORAL MEDICATION ADMINISTERED ORDERED. PATIENT SWALLOWED WELL. NO S/S OF ASPIRATION NOTED. CONTINUE TO MONITOR.
--- NOTE | 2020-03-01 01:32 | NUR ---
PATIENT URINATED, CLEANED PATIENT, PARTIAL LINEN CHANGED. CONTINUE CARE
--- NOTE | 2020-03-01 03:55 | NUR ---
PATIENT SLEEPING. NO S/S OF DISTRESS NOTED. CONTINUE CARE.
[2020-03-01 04:57] VITALS: BP 104/65
[2020-03-01 09:00] VITALS: BP 93/67
[2020-03-01] MEDS: ENOXAPARIN SOD 40 MG/0.4 ML SYRINGE SC SCH (10:07)
[2020-03-01] MEDS: CARBAMIDE PEROXIDE 6.5% OTIC(EAR) SOLN 15ML RIGHT EAR SCH ×2 (10:07→21:52)
[2020-03-01] MEDS: levETIRAcetam 500 MG TAB PO SCH ×2 (10:07→21:53)
[2020-03-01] MEDS: ASPirin-EC 81 mg tab PO SCH (10:08)
[2020-03-01] MEDS: FLUoxetine HCL 20 MG CAP PO SCH (10:08)
--- NOTE | 2020-03-01 10:12 | NUR ---
PT Patient having bed bath during morning PT visit. Addendum: 03/01/20 at 1013 by SHAHZAD COE PTT Amended: Links added.
[2020-03-01 13:00] VITALS: BP 95/63
--- NOTE | 2020-03-01 16:57 | NUR ---
D/C Planning Faxed COVID-19 results to [facility] and [facility]. Per Kristan with [facility] they do not have a male bed available until Wednesday. Per Cindy with [facility] Ph:) or Ph: ( [phone]) patient has been accepted to room 7 accepting , Dr. Alvarez. Cindy advised me patient will be cover the first 20 days and then patient will have a share of cost spend down. Placed call to Aleta with [facility] informing her what Cindy with [facility] provided me. Per Aleta she will confirmed with [facility] and for the mean time they will authorized SNF placement to [place] authorization for SNF is [id number] and Transportation [id number]. Placed followed up called to patient sister Kristan Ph:) informing her [facility] did not have male bed available however, [facility] in [facility] was willing to accept. Provided patient sister Kristan with information regarding accepting facility. Informed patient sister Kristan patient will be cover the first 20 days and after the 20 days patient will have a share of cost spend down that he will have to meet. Informed patient sister Kristan [facility] is aware of this share of cost and will confirm if he does have to meet this share of cost and [facility] will contact her. Patient sister Kristan verbalize understanding d/c plan. Faxed transportation form request to [facility] requesting for a 18:00 picker box operator time via gurney/ oxygen providing them with nurses station [phone] so that they can confirm ETA and company who will be transporting patient. YECENIA Armendariz was informed.
[2020-03-01 17:00] VITALS: BP 110/71
[2020-03-01] MEDS: MIRTAZAPINE 30 MG TAB PO SCH (17:45)
[2020-03-01] MEDS: TAMSULOSIN HYDROCHLORIDE 0.4 MG CAP PO SCH (17:45)
--- NOTE | 2020-03-01 17:47 | NUR ---
Received call from Lena with [facility] transport advising me they do not have any transportation available for today who can provide oxygen. Lena informed me [employer] transport Ph: ) can molded goods spot picker patient tomorrow Wednesday at 15:30 via gurney with oxygen. Informed YECENIA Armendariz regarding discharge plan.
--- NOTE | 2020-03-01 19:39 | NUR ---
Care endorsed to YECENIA Gorman, night nurse.
--- NOTE | 2020-03-01 19:40 | NUR ---
Opening Shift Note Report received from day shift RN. Assumed care of patient, awake, alert and oriented. No S/S of distress/SOB noted and patient denies pain at this time. Instructed on POC and to call for assist PRN. Bed locked, in lowest position, call light within reach, seizure precautions in place. Will continue to monitor for changes Q1hr and PRN.
[2020-03-01] MEDS: ATORVASTATIN 20 MG TAB PO SCH (21:53)
[2020-03-01 22:00] VITALS: BP 101/62
--- NOTE | 2020-03-01 22:23 | NUR ---
BP REASSESSED LOW BP WAS REPORTED BY TIP OUT WORKER, 98/50 BP WAS REASSESSED, NEW READIN/62 PATIENT REPORTS FEELING FINE, NO PAIN OR DISCOMFORT. NO S/S OF DISTRESS OR SOB NOTED. WILL CONTINUE TO MONITOR.
[2020-03-01 22:49] VITALS: BP 98/50
[2020-03-02 05:00] VITALS: BP 100/57
[2020-03-02 09:00] VITALS: BP 95/58
[2020-03-02] MEDS: levETIRAcetam 500 MG TAB PO SCH (09:23)
[2020-03-02] MEDS: ASPirin-EC 81 mg tab PO SCH (09:23)
[2020-03-02] MEDS: ENOXAPARIN SOD 40 MG/0.4 ML SYRINGE SC SCH (09:24)
[2020-03-02] MEDS: FLUoxetine HCL 20 MG CAP PO SCH (09:24)
[2020-03-02] MEDS: CARBAMIDE PEROXIDE 6.5% OTIC(EAR) SOLN 15ML RIGHT EAR SCH (09:25)
--- NOTE | 2020-03-02 10:06 | NUR ---
CALLED [employer] [facility] TO CONFIRM PICKUP TIME, [facility] REPORT THEY WILL BE HERE AT 1530 TO RN LICENSED PRACTICAL PATIENT. CALLED PT SISTER AND NOTIFIED HER PT IS GOING TO [facility] ROOM [facility]. SISTER VIKRAM AWARE AND CONFIRMS. NOTIFIED HER RN LICENSED PRACTICAL TIME IS 1530. SHE REPORTS SHE HAS THE PHONE NUMBER AND ADDRESS.
--- NOTE | 2020-03-02 10:12 | NUR ---
CALLED [facility] TO GIVE REPORT, NO ANSWER, WILL CALL AGAIN.
[2020-03-02 10:30] VITALS: BP 95/58
--- NOTE | 2020-03-02 10:50 | NUR ---
CALLED [facility] AND GAVE REPORT TO LEOPOLDO EDWARDS.
--- NOTE | 2020-03-02 11:01 | NUR ---
SPOKE WITH MANUEL CHARGE NURSE. REPORTED PT IS SLIGHTLY CONFUSED. PT KNOW NAME, AND PRESIDENT BUT NOT TIME OR DATE. NOTIFIED CHARGE PT IS TRANSFERRING TO SNF AND THAT PATIENT SISTER VIKRAM IS AWARE. MANUEL REPORTS TO WRITE ON DC PAPER WORK SISTER VIKRAM AWARE PT IS TRANSFERRING.
--- NOTE | 2020-03-02 11:16 | NUR ---
SPOKE WITH PATIENT AND NOTIFIED HIM HE WILL BE GOING TO [facility] TODAY AT 1530. PT VERBALIZED UNDERSTANDING NOTIFIED PT HIS SISTER VIKRAM KNOW HE IS GOING TODAY, AND PT SISTER WANTED TO NOTIFY PATIENT SHE WOULD CALL HIM OVER THERE LATER TODAY. PT VERBALIZED UNDERSTANDING.
--- NOTE | 2020-03-02 11:49 | NUR ---
DISCHARGE PHOTOS TAKEN OF BILATERAL LOWER EXTREMITIES.
[2020-03-02 13:00] VITALS: BP 100/60
--- NOTE | 2020-03-02 15:50 | NUR ---
[facility] HERE TO EVENT MARKETING INTERN PATIENT. PT OWN MEDICATIONS TAKEN FROM INPATIENT PHARMACY AND PUT IN BELONGINGS BAG AND GIVEN TO TRANSPORT STAFF WITH DC PACKET.
--- NOTE | 2020-03-02 15:54 | NUR ---
Discharge instructions given as ordered. Encourage to follow up with PMD and Dr Odom as instructed. All questions and concerns addressed. Patient verbalized understanding. Medication reconciliation form completed and copy given to patient. Home medications held in Pharmacy returned to patient. IV removed with catheter intact, pressure dressing applied. Telemetry unit returned to ICU. Patient taken to ambulance via gurney by [facility] with all personal belongings. No distress noted at time of departure.
[2020-07-11] MEDS ORDERED: PRAV20TA3 PO (17:38)
[2020-07-11] MEDS ORDERED: MIRT1TAB38 PO (17:38)
[2020-07-11] MEDS ORDERED: LEVO25TA6 PO (17:38)
[2020-07-11] MEDS ORDERED: UMEC1AER IN (17:38)
== END 2020-03-02 16:00 | DRG 641 ==
LOC: EDBD 11:41 → ER 11:41 → TELE 11:42 → TELE-WESTW 19:52
PROVIDERS: ADMIT Nurse Practitioner Acute Care; ATTEND Internal Medicine Nephrology
DX: E87.6 Hypokalemia (principal); G40.209 Localization-related (focal) (partial) symptomatic epilepsy and epileptic syndromes with complex partial seizures, not intractable, without status epilepticus; J44.9 Chronic obstructive pulmonary disease, unspecified; E86.0 Dehydration; F39 Unspecified mood [affective] disorder; F79 Unspecified intellectual disabilities; R29.6 Repeated falls; R55 Syncope and collapse; F17.210 Nicotine dependence, cigarettes, uncomplicated; E78.5 Hyperlipidemia, unspecified; F20.9 Schizophrenia, unspecified; F41.9 Anxiety disorder, unspecified; H54.61 Unqualified visual loss, right eye, normal vision left eye; I10 Essential (primary) hypertension; N40.0 Benign prostatic hyperplasia without lower urinary tract symptoms; R62.7 Adult failure to thrive; Z79.82 Long term (current) use of aspirin; Z86.711 Personal history of pulmonary embolism; Z79.899 Other long term (current) drug therapy; Z83.3 Family history of diabetes mellitus; Z87.820 Personal history of traumatic brain injury; Z91.81 History of falling; F32.9 Major depressive disorder, single episode, unspecified; M54.5 Low back pain; G83.84 Todd's paralysis (postepileptic); Z20.828 Contact with and (suspected) exposure to other viral communicable diseases
CPT/HCPCS: 36415; 70450; 70551; 71045; 80048; 80053; 80061; 83735; 84132; 84484; 85025; 85379; 85610; 85730; 93306; 93886; 95819; 97116; 97163; 97530; G0378; J3480

== ENCOUNTER 2020-04-22 11:44 | Inpatient (IN) | payer OTHER, MEDICAID ==
[~2020-04-22] VITALS: Ht 182.9 cm; Wt 84.0 kg
[~2020-04-22 11:44] MED LIST changes: -BACL10TA PO; -HYDR-4833 PO; -HYDR25TA4 PO; +OMEP20TA PO; -PALI1TAB4 PO; -POTA1TAB61 PO
[2020-04-22] MEDS ORDERED: SODIUM CHLORIDE 0.9% 500 ML IV ONE (11:52)
[2020-04-22 13:06] LABS: Basophils # (auto) 0.1 10 ^3/uL (0-0.2); Basophils % (auto) 0.9 % (0.0-2.0); Eosinophils # (auto) 0.1 10 ^3/uL (0-0.8); Eosinophils % (auto) 1.5 % (0.0-7.0); Hematocrit 38.1 % (41.0-53.0); Hemoglobin 12.7 g/dL (13.5-17.5); Lymphocytes # (auto) 1.4 10 ^3/uL (0.4-5.4); Lymphocytes % (auto) 18.3 % (10.0-50.0); Mean Corpuscular Hemoglobin 30.4 pg (28.0-32.0); Mean Corpuscular Hgb Conc. 33.2 g/dL (32.0-36.0); Mean Corpuscular Volume 91.5 fL (80.0-100.0); Monocytes # (auto) 0.6 10 ^3/uL (0-1.3); Monocytes % (auto) 8.1 % (0.0-12.0); Neutrophils # (auto) 5.5 10 ^3/uL (1.6-8.6); Neutrophils % (auto) 71.2 % (37.0-80.0); Platelet Count (auto) 266 10^3/uL (140-450); Red Blood Cells 4.17 10^6/uL (4.5-5.90); Red Cell Distribution Width 13.8 % (11.8-14.3); White Blood Cell 7.8 10^3/uL (4.4-10.8)
[2020-04-22 13:21] LABS: Albumin 2.9 g/dL (3.4-5.0); Anion Gap 4 (5-15); Blood Urea Nitrogen 16 mg/dL (7-18); Calcium 8.1 mg/dL (8.5-10.1); Carbon Dioxide 28 mmol/L (21-32); Chloride 110 mmol/L (98-107); Glucose 142 mg/dL (74-106); Magnesium 2.2 mg/dL (1.6-2.6); Potassium 3.5 mmol/L (3.5-5.1); Sodium 142 mmol/L (136-145)
[2020-04-22 13:27] LABS: Alanine Aminotransferase 13 U/L (16-61); Alkaline Phosphatase 98 U/L (45-117); Aspartate Aminotransferase 9 U/L (15-37); BUN/Creatinine Ratio 17.4; Bilirubin, Total 0.2 mg/dL (0.2-1.0); GFR African American 107 mL/min; GFR Non-African American 88 mL/min; Total Protein 6.2 g/dL (6.4-8.2)
[2020-04-22] MEDS ORDERED: ACETAMINOPHEN 500 MG TAB PO PRN (14:45)
[2020-04-22] MEDS ORDERED: MORPHINE SULF INJ 2 MG/ML SYRINGE 1ML IV PRN ×2 (14:45)
[2020-04-22] MEDS ORDERED: ONDANSETRON HCL 4 MG/2 ML VIAL IV PRN (14:45)
[2020-04-22] MEDS: SODIUM CHLORIDE 0.9% 1,000 ML IV SCH (14:45)
[2020-04-22] MEDS ORDERED: HYDROcodone-ACET 5/325MG TAB PO PRN (14:45)
[2020-04-22] MEDS ORDERED: NITROGLYCERIN 0.4 MG SL TAB SL PRN (14:45)
[2020-04-22] MEDS: cefTRIAXone 1GM/50ML D5W 50 ML IV SCH (15:36)
[2020-04-22] MEDS: AZITHROMYCIN 500MG/ 250ML 250 ML IV SCH (16:25)
[2020-04-22 17:30] VITALS: BP 131/88
[2020-04-22] MEDS: TAMSULOSIN HYDROCHLORIDE 0.4 MG CAP PO SCH (18:31)
[2020-04-22] MEDS: MIRTAZAPINE 30 MG TAB PO SCH (18:32)
[2020-04-22] MEDS: ALBUTEROL SULF 2.5 MG/0.5ML(0.5%) NEB SOLN NEB SCH (19:17)
[2020-04-22] MEDS: IPRATROPIUM BROM 0.5 MG/2.5ML INH SOL NEB SCH (19:17)
[2020-04-22] MEDS: levETIRAcetam 500 MG TAB PO SCH ×2 (21:32→21:48)
[2020-04-22 21:34] VITALS: BP 131/79
[2020-04-22] MEDS ORDERED: PATIENTS OWN MEDICATION (Lovastatin 1 TAB) PO SCH (22:00)
[2020-04-23] MEDS: SODIUM CHLORIDE 0.9% 1,000 ML IV SCH (03:00)
[2020-04-23 03:47] VITALS: BP 131/79
[2020-04-23 05:00] VITALS: BP 117/73
[2020-04-23 05:50] LABS: Basophils # (auto) 0.1 10 ^3/uL (0-0.2); Basophils % (auto) 0.9 % (0.0-2.0); Eosinophils # (auto) 0.2 10 ^3/uL (0-0.8); Eosinophils % (auto) 2.7 % (0.0-7.0); Hematocrit 36.9 % (41.0-53.0); Hemoglobin 12.7 g/dL (13.5-17.5); Lymphocytes # (auto) 1.3 10 ^3/uL (0.4-5.4); Lymphocytes % (auto) 22.2 % (10.0-50.0); Mean Corpuscular Hgb Conc. 34.4 g/dL (32.0-36.0); Mean Corpuscular Volume 90.1 fL (80.0-100.0); Monocytes # (auto) 0.5 10 ^3/uL (0-1.3); Monocytes % (auto) 8.5 % (0.0-12.0); Neutrophils # (auto) 3.8 10 ^3/uL (1.6-8.6); Neutrophils % (auto) 65.7 % (37.0-80.0); Nucleated Red Blood Cells % 0.1 %; Platelet Count (auto) 253 10^3/uL (140-450); Red Cell Distribution Width 13.9 % (11.8-14.3); White Blood Cell 5.9 10^3/uL (4.4-10.8)
[2020-04-23 06:09] LABS: BUN/Creatinine Ratio 16.5; Calcium 8.5 mg/dL (8.5-10.1); Potassium 3.4 mmol/L (3.5-5.1)
[2020-04-23] MEDS: IPRATROPIUM BROM 0.5 MG/2.5ML INH SOL NEB SCH ×3 (07:07→18:45)
[2020-04-23] MEDS: ALBUTEROL SULF 2.5 MG/0.5ML(0.5%) NEB SOLN NEB SCH ×3 (07:07→18:45)
[2020-04-23] MEDS: cefTRIAXone 1GM/50ML D5W 50 ML IV SCH (08:35)
[2020-04-23 08:51] VITALS: BP 150/92
[2020-04-23] MEDS: FLUoxetine HCL 20 MG CAP PO SCH (09:09)
[2020-04-23] MEDS: AZITHROMYCIN 500MG/ 250ML 250 ML IV SCH (09:09)
[2020-04-23] MEDS: levETIRAcetam 500 MG TAB PO SCH ×2 (09:10→20:17)
[2020-04-23] MEDS: ATORVASTATIN 20 MG TAB PO SCH (09:10)
[2020-04-23] MEDS: GABAPENTIN 100 MG CAP PO SCH (09:10)
[2020-04-23] MEDS: FAMOTIDINE 20 MG TAB PO SCH ×2 (09:16→20:17)
[2020-04-23] MEDS ORDERED: PRAVASTATIN SODIUM 20 MG TAB PO SCH (10:00)
[2020-04-23] MEDS ORDERED: LEVOTHYROXINE SODIUM 50 MCG TAB PO SCH (10:00)
[2020-04-23 13:00] VITALS: BP 127/88
[2020-04-23 14:54] LABS: Urine Bacteria NONE SEEN /hpf (None Seen); Urine Blood Negative /uL (Negative); Urine Specific Gravity 1.007 (1.001-1.035); Urine WBC 39 /hpf (0 - 3)
[2020-04-23 17:00] VITALS: BP 125/83
[2020-04-23] MEDS: TAMSULOSIN HYDROCHLORIDE 0.4 MG CAP PO SCH (17:53)
[2020-04-23] MEDS: MIRTAZAPINE 30 MG TAB PO SCH (17:53)
[2020-04-23 22:19] VITALS: BP 132/78
[2020-04-24 05:00] VITALS: BP 124/81
[2020-04-24] MEDS: LEVOTHYROXINE SODIUM 25 MCG TAB PO SCH (06:13)
[2020-04-24 06:26] LABS: Basophils # (auto) 0 10 ^3/uL (0-0.2); Eosinophils # (auto) 0.2 10 ^3/uL (0-0.8); Eosinophils % (auto) 3.3 % (0.0-7.0); Hematocrit 36.9 % (41.0-53.0); Hemoglobin 12.6 g/dL (13.5-17.5); Lymphocytes # (auto) 1.1 10 ^3/uL (0.4-5.4); Lymphocytes % (auto) 22.7 % (10.0-50.0); Mean Corpuscular Hemoglobin 30.9 pg (28.0-32.0); Mean Corpuscular Hgb Conc. 34.2 g/dL (32.0-36.0); Mean Corpuscular Volume 90.4 fL (80.0-100.0); Monocytes # (auto) 0.5 10 ^3/uL (0-1.3); Monocytes % (auto) 10.7 % (0.0-12.0); Neutrophils # (auto) 3.1 10 ^3/uL (1.6-8.6); Neutrophils % (auto) 62.3 % (37.0-80.0); Platelet Count (auto) 234 10^3/uL (140-450); Red Blood Cells 4.08 10^6/uL (4.5-5.90); Red Cell Distribution Width 13.7 % (11.8-14.3); White Blood Cell 4.9 10^3/uL (4.4-10.8)
[2020-04-24 06:40] LABS: Potassium 3.5 mmol/L (3.5-5.1)
[2020-04-24] MEDS: IPRATROPIUM BROM 0.5 MG/2.5ML INH SOL NEB SCH ×4 (07:02→22:17)
[2020-04-24] MEDS: ALBUTEROL SULF 2.5 MG/0.5ML(0.5%) NEB SOLN NEB SCH ×4 (07:02→22:17)
[2020-04-24 07:05] LABS: BUN/Creatinine Ratio 13.9; Bilirubin, Total 0.4 mg/dL (0.2-1.0); Calcium 8.6 mg/dL (8.5-10.1); Magnesium 2.6 mg/dL (1.6-2.6); Total Protein 6.5 g/dL (6.4-8.2)
[2020-04-24 09:25] VITALS: BP 136/93
[2020-04-24] MEDS ORDERED: ENOXAPARIN SOD 30 MG/0.3 ML SYRINGE SC SCH (10:00)
[2020-04-24] MEDS: levETIRAcetam 500 MG TAB PO SCH ×2 (10:46→21:42)
[2020-04-24] MEDS: FLUoxetine HCL 20 MG CAP PO SCH (10:46)
[2020-04-24] MEDS: AZITHROMYCIN 500MG/ 250ML 250 ML IV SCH (10:46)
[2020-04-24] MEDS: cefTRIAXone 1GM/50ML D5W 50 ML IV SCH (10:46)
[2020-04-24] MEDS: GABAPENTIN 100 MG CAP PO SCH (10:47)
[2020-04-24] MEDS: ATORVASTATIN 20 MG TAB PO SCH (10:47)
[2020-04-24 12:32] VITALS: BP 127/84
[2020-04-24 17:00] VITALS: BP 121/79
[2020-04-24] MEDS: MIRTAZAPINE 30 MG TAB PO SCH (17:57)
[2020-04-24] MEDS: TAMSULOSIN HYDROCHLORIDE 0.4 MG CAP PO SCH (17:57)
[2020-04-24] MEDS: FAMOTIDINE 20 MG TAB PO SCH (21:42)
[2020-04-24] MEDS: ACETYLCYSTEINE 20%(200MG/ML) SOL 4ML NEB SCH (22:18)
[2020-04-24 23:38] VITALS: BP 124/89
[2020-04-25 05:49] VITALS: BP 141/92
[2020-04-25] MEDS: ALBUTEROL SULF 2.5 MG/0.5ML(0.5%) NEB SOLN NEB SCH ×3 (05:56→20:58)
[2020-04-25] MEDS: IPRATROPIUM BROM 0.5 MG/2.5ML INH SOL NEB SCH ×3 (05:56→20:57)
[2020-04-25] MEDS: ACETYLCYSTEINE 20%(200MG/ML) SOL 4ML NEB SCH ×3 (06:05→20:57)
[2020-04-25] MEDS: LEVOTHYROXINE SODIUM 25 MCG TAB PO SCH (06:36)
[2020-04-25 07:30] VITALS: BP 132/86
[2020-04-25 08:00] VITALS: BP 132/86
[2020-04-25] MEDS: ATORVASTATIN 20 MG TAB PO SCH (09:53)
[2020-04-25] MEDS: levETIRAcetam 500 MG TAB PO SCH ×2 (09:53→21:36)
[2020-04-25] MEDS: cefTRIAXone 1GM/50ML D5W 50 ML IV SCH (09:53)
[2020-04-25] MEDS: FLUoxetine HCL 20 MG CAP PO SCH (09:54)
[2020-04-25] MEDS: GABAPENTIN 100 MG CAP PO SCH (09:54)
[2020-04-25] MEDS: ENOXAPARIN SOD 40 MG/0.4 ML SYRINGE SC SCH (09:54)
[2020-04-25] MEDS: AZITHROMYCIN 250 MG TAB PO SCH (09:54)
[2020-04-25 12:54] VITALS: BP 124/84
[2020-04-25 16:22] VITALS: BP 136/84
[2020-04-25] MEDS: MIRTAZAPINE 30 MG TAB PO SCH (18:10)
[2020-04-25] MEDS: TAMSULOSIN HYDROCHLORIDE 0.4 MG CAP PO SCH (18:10)
[2020-04-25] MEDS: FAMOTIDINE 20 MG TAB PO SCH (21:36)
[2020-04-25 22:00] VITALS: BP 118/75
[2020-04-26 04:33] VITALS: BP 118/75
[2020-04-26 05:00] VITALS: BP 120/67
[2020-04-26] MEDS: LEVOTHYROXINE SODIUM 25 MCG TAB PO SCH (06:06)
[2020-04-26] MEDS: IPRATROPIUM BROM 0.5 MG/2.5ML INH SOL NEB SCH (07:02)
[2020-04-26] MEDS: ACETYLCYSTEINE 20%(200MG/ML) SOL 4ML NEB SCH (07:02)
[2020-04-26] MEDS: ALBUTEROL SULF 2.5 MG/0.5ML(0.5%) NEB SOLN NEB SCH (07:02)
[2020-04-26 09:00] VITALS: BP 125/55
[2020-04-26] MEDS: levETIRAcetam 500 MG TAB PO SCH (09:27)
[2020-04-26] MEDS: cefTRIAXone 1GM/50ML D5W 50 ML IV SCH (09:27)
[2020-04-26] MEDS: ATORVASTATIN 20 MG TAB PO SCH (09:28)
[2020-04-26] MEDS: GABAPENTIN 100 MG CAP PO SCH (09:28)
[2020-04-26] MEDS: FLUoxetine HCL 20 MG CAP PO SCH (09:29)
[2020-04-26] MEDS: AZITHROMYCIN 250 MG TAB PO SCH (09:30)
[2020-04-26] MEDS: ENOXAPARIN SOD 40 MG/0.4 ML SYRINGE SC SCH (09:30)
[2020-04-26 10:35] VITALS: BP 125/55
== END 2020-04-26 13:35 | DRG 193 ==
LOC: EDUNIT# 11:44 → EDBD 11:44 → ER 11:44 → TELE-EAST 11:45
PROVIDERS: ADMIT Nurse Practitioner Acute Care; ATTEND Internal Medicine
DX: J18.9 Pneumonia, unspecified organism (principal); J96.20 Acute and chronic respiratory failure, unspecified whether with hypoxia or hypercapnia; I95.9 Hypotension, unspecified; E86.1 Hypovolemia; F32.9 Major depressive disorder, single episode, unspecified; G40.909 Epilepsy, unspecified, not intractable, without status epilepticus; E03.9 Hypothyroidism, unspecified; E78.5 Hyperlipidemia, unspecified; J43.9 Emphysema, unspecified; F41.9 Anxiety disorder, unspecified; Z20.828 Contact with and (suspected) exposure to other viral communicable diseases; F17.210 Nicotine dependence, cigarettes, uncomplicated; I10 Essential (primary) hypertension; Z83.3 Family history of diabetes mellitus; Z87.820 Personal history of traumatic brain injury; Z90.49 Acquired absence of other specified parts of digestive tract
CPT/HCPCS: 36415; 71045; 71250; 80048; 80053; 81001; 83605; 83735; 83880; 84439; 84443; 84484; 85025; 85379; 87040; 93005; 93970; 94640; 94667; 97163; 97530; G0378; J0696

== ENCOUNTER 2022-01-02 09:07 | Emergency (ER) | payer OTHER, MEDICAID ==
[~2022-01-02] VITALS: Ht 177.8 cm; Wt 102.1 kg
[~2022-01-02 09:07] MED LIST changes: -LEV50T GT; +LEVO25TA6 PO; -LOVA40TA72 PO; +MIRT1TAB38 PO; -MIRT30TA PO; -PALI9TAB2 PO; +UMEC1AER IN
[2022-01-02 10:46] LABS: Basophils # (auto) 0.2 10 ^3/uL (0-0.2); Basophils % (auto) 2.3 % (0.0-2.0); Eosinophils # (auto) 0.2 10 ^3/uL (0-0.8); Eosinophils % (auto) 2.5 % (0.0-7.0); Hematocrit 41.8 % (41.0-53.0); Hemoglobin 14.3 g/dL (13.5-17.5); Lymphocytes % (auto) 13.4 % (10.0-50.0); Mean Corpuscular Hemoglobin 30.5 pg (28.0-32.0); Mean Corpuscular Hgb Conc. 34.2 g/dL (32.0-36.0); Mean Corpuscular Volume 89.2 fL (80.0-100.0); Monocytes # (auto) 0.6 10 ^3/uL (0-1.3); Monocytes % (auto) 8.8 % (0.0-12.0); Neutrophils # (auto) 5.3 10 ^3/uL (1.6-8.6); Red Blood Cells 4.69 10^6/uL (4.5-5.90); White Blood Cell 7.3 10^3/uL (4.4-10.8)
[2022-01-02 10:47] LABS: Albumin 3.3 g/dL (3.4-5.0); BUN/Creatinine Ratio 14.2; Calcium 8.7 mg/dL (8.5-10.1); Potassium 3.6 mmol/L (3.5-5.1)
[2022-01-02 10:52] LABS: Bilirubin, Total 0.5 mg/dL (0.2-1.0); Total Protein 6.8 g/dL (6.4-8.2)
[2022-01-02 10:56] VITALS: BP 119/64
[2022-01-02] MEDS ORDERED: HYDROcodone-ACET 10/325MG TAB PO ONE (11:45)
== END 2022-01-02 12:33 | disposition home or self-care (01) ==
LOC: ER 09:07
DX: S76.911A Strain of unspecified muscles, fascia and tendons at thigh level, right thigh, initial encounter (principal); R94.31 Abnormal electrocardiogram [ECG] [EKG]; W18.39XA Other fall on same level, initial encounter; Y93.89 Activity, other specified; Y92.89 Other specified places as the place of occurrence of the external cause; Y99.8 Other external cause status
CPT/HCPCS: 36415; 71045; 74176; 80053; 84484; 85025; 93005

== ENCOUNTER 2022-06-09 11:22 | Inpatient (IN) | payer OTHER, MEDICAID ==
[~2022-06-09] VITALS: Ht 177.8 cm; Wt 104.1 kg
[2022-06-09] MEDS ORDERED: methylPREDNISolone SOD SUCC 125 MG/2 ML VL IV ONE (12:15)
[2022-06-09] MEDS ORDERED: ALBUTEROL SULF 2.5 MG/0.5ML(0.5%) NEB SOLN NEB ONE (12:15)
[2022-06-09] MEDS ORDERED: IPRATROPIUM BROM 0.5 MG/2.5ML INH SOL NEB ONE (12:15)
[2022-06-09 12:41] LABS: Basophils # (auto) 0.1 10 ^3/uL (0-0.2); Eosinophils # (auto) 0.1 10 ^3/uL (0-0.8); Eosinophils % (auto) 1.7 % (0.0-7.0); Hematocrit 44.2 % (41.0-53.0); Hemoglobin 13.9 g/dL (13.5-17.5); Lymphocytes # (auto) 1.1 10 ^3/uL (0.4-5.4); Mean Corpuscular Hgb Conc. 31.5 g/dL (32.0-36.0); Mean Corpuscular Volume 85.5 fL (80.0-100.0); Monocytes # (auto) 0.8 10 ^3/uL (0-1.3); Monocytes % (auto) 12.3 % (0.0-12.0); Neutrophils # (auto) 4.4 10 ^3/uL (1.6-8.6); Nucleated Red Blood Cells % 0.1 %; Red Blood Cells 5.16 10^6/uL (4.5-5.90); Red Cell Distribution Width 14.9 % (11.8-14.3); White Blood Cell 6.5 10^3/uL (4.4-10.8)
[2022-06-09 13:07] LABS: Albumin 3.7 g/dL (3.4-5.0); Calcium 8.5 mg/dL (8.5-10.1); Potassium 3.7 mmol/L (3.5-5.1)
[2022-06-09 13:09] LABS: BUN/Creatinine Ratio 8.6
[2022-06-09 13:13] LABS: Bilirubin, Total 0.3 mg/dL (0.2-1.0); Total Protein 7.5 g/dL (6.4-8.2)
[2022-06-09 14:15] LABS: Urine Bacteria FEW /hpf (None Seen); Urine Blood Negative /uL (Negative); Urine Specific Gravity 1.004 (1.001-1.035); Urine WBC <1 /hpf (0 - 3)
[2022-06-09] MEDS ORDERED: cefTRIAXone 1GM/50ML D5W 50 ML IV ONE (14:15)
[2022-06-09] MEDS ORDERED: NITROGLYCERIN 0.4 MG SL TAB SL PRN (17:15)
[2022-06-09] MEDS ORDERED: MORPHINE SULFATE INJ 2 MG/ml SYRG IV PRN (17:15)
[2022-06-09] MEDS ORDERED: AZITHROMYCIN 500MG/ 250ML 250 ML IV ONE (17:15)
[2022-06-09] MEDS ORDERED: PANTOPRAZOLE 40 MG/10 ML VIAL INJ IV ONE (18:00)
[2022-06-09] MEDS: TAMSULOSIN HYDROCHLORIDE 0.4 MG CAP PO SCH (18:08)
[2022-06-09 18:16] LABS: Cholesterol 141 mg/dL (< 200)
[2022-06-09 18:19] LABS: HDL Cholesterol 34 mg/dL (40-59); LDL Cholesterol 97 mg/dL (< 100); Triglycerides 120 mg/dL (< 150)
[2022-06-09] MEDS: ALBUTEROL SULF 2.5 MG/0.5ML(0.5%) NEB SOLN NEB SCH (18:30)
[2022-06-09] MEDS: IPRATROPIUM BROM 0.5 MG/2.5ML INH SOL NEB SCH (18:30)
[2022-06-09 20:32] VITALS: BP 102/69
[2022-06-09] MEDS: levETIRAcetam 500 MG TAB PO SCH (22:20)
[2022-06-09 23:30] VITALS: BP 107/64
[2022-06-10] MEDS: ALBUTEROL SULF 2.5 MG/0.5ML(0.5%) NEB SOLN NEB PRN (00:16)
[2022-06-10] MEDS: IPRATROPIUM BROM 0.5 MG/2.5ML INH SOL NEB PRN (00:16)
[2022-06-10 04:57] VITALS: BP 96/60
[2022-06-10] MEDS: methylPREDNISolone SOD SUCC 40 MG/ML VL IV SCH ×3 (06:42→22:35)
[2022-06-10] MEDS: ALBUTEROL SULF 2.5 MG/0.5ML(0.5%) NEB SOLN NEB SCH ×4 (06:50→18:37)
[2022-06-10] MEDS: IPRATROPIUM BROM 0.5 MG/2.5ML INH SOL NEB SCH ×4 (06:50→18:37)
[2022-06-10 08:27] LABS: Basophils # (auto) 0 10 ^3/uL (0-0.2); Basophils % (auto) 0.3 % (0.0-2.0); Eosinophils # (auto) 0 10 ^3/uL (0-0.8); Hematocrit 42.3 % (41.0-53.0); Hemoglobin 13.6 g/dL (13.5-17.5); Lymphocytes % (auto) 13.6 % (10.0-50.0); Mean Corpuscular Hemoglobin 27.3 pg (28.0-32.0); Mean Corpuscular Hgb Conc. 32.1 g/dL (32.0-36.0); Mean Corpuscular Volume 85.1 fL (80.0-100.0); Monocytes # (auto) 0.6 10 ^3/uL (0-1.3); Monocytes % (auto) 7.8 % (0.0-12.0); Neutrophils # (auto) 5.6 10 ^3/uL (1.6-8.6); Neutrophils % (auto) 78.3 % (37.0-80.0); Red Blood Cells 4.97 10^6/uL (4.5-5.90); White Blood Cell 7.1 10^3/uL (4.4-10.8)
[2022-06-10 08:47] LABS: Albumin 3.3 g/dL (3.4-5.0); Potassium 4.1 mmol/L (3.5-5.1)
[2022-06-10 08:51] LABS: BUN/Creatinine Ratio 12.4; Bilirubin, Total 0.3 mg/dL (0.2-1.0); Total Protein 6.8 g/dL (6.4-8.2)
[2022-06-10 09:00] VITALS: BP 103/61
[2022-06-10] MEDS: PANTOPRAZOLE 40 MG/10 ML VIAL INJ IV SCH (09:59)
[2022-06-10] MEDS: cefTRIAXone 1GM/50ML D5W 50 ML IV SCH (09:59)
[2022-06-10] MEDS: ENOXAPARIN SOD 40 MG/0.4 ML SYRINGE SC SCH (09:59)
[2022-06-10] MEDS: DOXYCYCLINE 100 MG TAB/CAP PO SCH ×2 (09:59→22:36)
[2022-06-10] MEDS: levETIRAcetam 500 MG TAB PO SCH ×2 (09:59→22:35)
[2022-06-10] MEDS ORDERED: AZITHROMYCIN 500MG/ 250ML 250 ML IV SCH (10:00)
[2022-06-10] MEDS ORDERED: IOHEXOL 350 MG/ML 100ML IJ ONE (12:59)
[2022-06-10 13:00] VITALS: BP 123/77
[2022-06-10] MEDS ORDERED: MIRT1TAB38 PO (16:19)
[2022-06-10] MEDS ORDERED: BACL10TA PO (16:19)
[2022-06-10] MEDS ORDERED: MORP1TAB12 PO (16:19)
[2022-06-10] MEDS ORDERED: FURO40TA4 PO (16:19)
[2022-06-10 17:00] VITALS: BP 128/83
[2022-06-10] MEDS: TAMSULOSIN HYDROCHLORIDE 0.4 MG CAP PO SCH (18:16)
[2022-06-10 22:00] VITALS: BP 113/73
[2022-06-11 05:00] VITALS: BP 142/72
[2022-06-11] MEDS: methylPREDNISolone SOD SUCC 40 MG/ML VL IV SCH ×3 (06:13→21:05)
[2022-06-11 06:44] LABS: Basophils # (auto) 0 10 ^3/uL (0-0.2); Basophils % (auto) 0.1 % (0.0-2.0); Eosinophils # (auto) 0 10 ^3/uL (0-0.8); Hemoglobin 13.1 g/dL (13.5-17.5); Lymphocytes # (auto) 0.8 10 ^3/uL (0.4-5.4); Mean Corpuscular Hemoglobin 27.3 pg (28.0-32.0); Mean Corpuscular Hgb Conc. 31.9 g/dL (32.0-36.0); Mean Corpuscular Volume 85.4 fL (80.0-100.0); Monocytes # (auto) 0.3 10 ^3/uL (0-1.3); Monocytes % (auto) 3.3 % (0.0-12.0); Neutrophils # (auto) 8.5 10 ^3/uL (1.6-8.6); Neutrophils % (auto) 88.6 % (37.0-80.0); Red Cell Distribution Width 14.8 % (11.8-14.3); White Blood Cell 9.6 10^3/uL (4.4-10.8)
[2022-06-11] MEDS: ALBUTEROL SULF 2.5 MG/0.5ML(0.5%) NEB SOLN NEB SCH ×3 (06:46→18:06)
[2022-06-11] MEDS: IPRATROPIUM BROM 0.5 MG/2.5ML INH SOL NEB SCH ×3 (06:46→18:06)
[2022-06-11 07:00] LABS: Potassium 4.4 mmol/L (3.5-5.1)
[2022-06-11 09:00] VITALS: BP 114/71
[2022-06-11] MEDS: PANTOPRAZOLE 40 MG/10 ML VIAL INJ IV SCH (09:45)
[2022-06-11] MEDS: cefTRIAXone 1GM/50ML D5W 50 ML IV SCH (09:45)
[2022-06-11] MEDS: DOXYCYCLINE 100 MG TAB/CAP PO SCH ×2 (09:46→21:05)
[2022-06-11] MEDS: ENOXAPARIN SOD 40 MG/0.4 ML SYRINGE SC SCH (09:46)
[2022-06-11] MEDS: levETIRAcetam 500 MG TAB PO SCH ×2 (09:46→21:05)
[2022-06-11 13:00] VITALS: BP 125/91
[2022-06-11 17:00] VITALS: BP 132/87
[2022-06-11] MEDS: TAMSULOSIN HYDROCHLORIDE 0.4 MG CAP PO SCH (17:58)
[2022-06-11 22:00] VITALS: BP 109/70
[2022-06-12 05:00] VITALS: BP 127/77
[2022-06-12] MEDS: methylPREDNISolone SOD SUCC 40 MG/ML VL IV SCH ×3 (05:55→21:46)
[2022-06-12] MEDS: ALBUTEROL SULF 2.5 MG/0.5ML(0.5%) NEB SOLN NEB SCH ×3 (07:15→19:19)
[2022-06-12] MEDS: IPRATROPIUM BROM 0.5 MG/2.5ML INH SOL NEB SCH ×3 (07:15→19:19)
[2022-06-12 09:00] VITALS: BP 132/85
[2022-06-12] MEDS: PANTOPRAZOLE 40 MG/10 ML VIAL INJ IV SCH (09:27)
[2022-06-12] MEDS: cefTRIAXone 1GM/50ML D5W 50 ML IV SCH (09:27)
[2022-06-12] MEDS: DOXYCYCLINE 100 MG TAB/CAP PO SCH ×2 (09:28→21:47)
[2022-06-12] MEDS: ENOXAPARIN SOD 40 MG/0.4 ML SYRINGE SC SCH (09:28)
[2022-06-12] MEDS: levETIRAcetam 500 MG TAB PO SCH ×2 (09:28→21:46)
[2022-06-12 13:00] VITALS: BP 100/64
[2022-06-12 13:49] LABS: Basophils # (auto) 0 10 ^3/uL (0-0.2); Basophils % (auto) 0.1 % (0.0-2.0); Eosinophils # (auto) 0 10 ^3/uL (0-0.8); Hematocrit 42.3 % (41.0-53.0); Hemoglobin 13.7 g/dL (13.5-17.5); Lymphocytes # (auto) 0.6 10 ^3/uL (0.4-5.4); Lymphocytes % (auto) 6.8 % (10.0-50.0); Mean Corpuscular Hemoglobin 27.7 pg (28.0-32.0); Mean Corpuscular Hgb Conc. 32.4 g/dL (32.0-36.0); Mean Corpuscular Volume 85.3 fL (80.0-100.0); Monocytes # (auto) 0.3 10 ^3/uL (0-1.3); Monocytes % (auto) 3.6 % (0.0-12.0); Neutrophils # (auto) 7.3 10 ^3/uL (1.6-8.6); Neutrophils % (auto) 89.5 % (37.0-80.0); Red Blood Cells 4.96 10^6/uL (4.5-5.90); Red Cell Distribution Width 15.1 % (11.8-14.3); White Blood Cell 8.2 10^3/uL (4.4-10.8)
[2022-06-12 14:05] LABS: BUN/Creatinine Ratio 25.9; Calcium 8.5 mg/dL (8.5-10.1)
[2022-06-12 16:59] VITALS: BP 116/68
[2022-06-12] MEDS: TAMSULOSIN HYDROCHLORIDE 0.4 MG CAP PO SCH (17:29)
[2022-06-12 21:53] VITALS: BP 116/68
[2022-06-12 22:00] VITALS: BP 130/80
[2022-06-13 05:00] VITALS: BP 123/78
[2022-06-13 05:43] LABS: Basophils # (auto) 0 10 ^3/uL (0-0.2); Basophils % (auto) 0.5 % (0.0-2.0); Eosinophils # (auto) 0 10 ^3/uL (0-0.8); Eosinophils % (auto) 0.3 % (0.0-7.0); Hematocrit 45.6 % (41.0-53.0); Hemoglobin 14.8 g/dL (13.5-17.5); Lymphocytes # (auto) 0.6 10 ^3/uL (0.4-5.4); Lymphocytes % (auto) 8.6 % (10.0-50.0); Mean Corpuscular Hemoglobin 27.6 pg (28.0-32.0); Mean Corpuscular Hgb Conc. 32.4 g/dL (32.0-36.0); Mean Corpuscular Volume 85.1 fL (80.0-100.0); Monocytes # (auto) 0.1 10 ^3/uL (0-1.3); Monocytes % (auto) 1.8 % (0.0-12.0); Neutrophils # (auto) 6.1 10 ^3/uL (1.6-8.6); Neutrophils % (auto) 88.8 % (37.0-80.0); Red Blood Cells 5.37 10^6/uL (4.5-5.90); Red Cell Distribution Width 14.6 % (11.8-14.3); White Blood Cell 6.9 10^3/uL (4.4-10.8)
[2022-06-13 06:02] LABS: BUN/Creatinine Ratio 26.4; Calcium 8.9 mg/dL (8.5-10.1); Potassium 4.1 mmol/L (3.5-5.1)
[2022-06-13] MEDS: methylPREDNISolone SOD SUCC 40 MG/ML VL IV SCH ×3 (06:45→21:13)
[2022-06-13] MEDS: ALBUTEROL SULF 2.5 MG/0.5ML(0.5%) NEB SOLN NEB SCH ×3 (07:00→19:55)
[2022-06-13] MEDS: IPRATROPIUM BROM 0.5 MG/2.5ML INH SOL NEB SCH ×3 (07:00→19:55)
[2022-06-13 09:00] VITALS: BP 145/90
[2022-06-13] MEDS: DOXYCYCLINE 100 MG TAB/CAP PO SCH ×2 (09:11→21:14)
[2022-06-13] MEDS: cefTRIAXone 1GM/50ML D5W 50 ML IV SCH (09:11)
[2022-06-13] MEDS: levETIRAcetam 500 MG TAB PO SCH ×2 (09:11→21:14)
[2022-06-13] MEDS: PANTOPRAZOLE 40 MG/10 ML VIAL INJ IV SCH (09:11)
[2022-06-13] MEDS: ENOXAPARIN SOD 40 MG/0.4 ML SYRINGE SC SCH (09:12)
[2022-06-13 13:00] VITALS: BP 122/87
[2022-06-13 16:44] VITALS: BP 118/74
[2022-06-13] MEDS: TAMSULOSIN HYDROCHLORIDE 0.4 MG CAP PO SCH (18:13)
[2022-06-13 21:42] VITALS: BP 124/88
[2022-06-14 05:00] VITALS: BP 116/62
[2022-06-14] MEDS: methylPREDNISolone SOD SUCC 40 MG/ML VL IV SCH ×3 (05:34→21:35)
[2022-06-14] MEDS: IPRATROPIUM BROM 0.5 MG/2.5ML INH SOL NEB SCH ×3 (06:52→18:48)
[2022-06-14] MEDS: ALBUTEROL SULF 2.5 MG/0.5ML(0.5%) NEB SOLN NEB SCH ×3 (06:53→18:48)
[2022-06-14 08:57] VITALS: BP 119/82
[2022-06-14] MEDS: DOXYCYCLINE 100 MG TAB/CAP PO SCH ×2 (09:14→21:34)
[2022-06-14] MEDS: cefTRIAXone 1GM/50ML D5W 50 ML IV SCH (09:14)
[2022-06-14] MEDS: PANTOPRAZOLE 40 MG/10 ML VIAL INJ IV SCH (09:14)
[2022-06-14] MEDS: levETIRAcetam 500 MG TAB PO SCH ×2 (09:14→21:40)
[2022-06-14] MEDS: ENOXAPARIN SOD 40 MG/0.4 ML SYRINGE SC SCH (09:14)
[2022-06-14 13:13] VITALS: BP 124/89
[2022-06-14 16:45] VITALS: BP 137/77
[2022-06-14] MEDS ORDERED: LACTULOSE 20Gm/30ML SOLN PO ONE (16:45)
[2022-06-14] MEDS ORDERED: DOCUSATE SOD 100 MG CAP PO ONE (16:45)
[2022-06-14] MEDS: TAMSULOSIN HYDROCHLORIDE 0.4 MG CAP PO SCH (18:22)
[2022-06-14] MEDS: DOCUSATE SOD 100 MG CAP PO SCH (21:34)
[2022-06-14] MEDS: LACTULOSE 20Gm/30ML SOLN PO SCH (21:43)
[2022-06-14 22:00] VITALS: BP 103/65
[2022-06-15] MEDS: IPRATROPIUM BROM 0.5 MG/2.5ML INH SOL NEB PRN (04:03)
[2022-06-15] MEDS: ALBUTEROL SULF 2.5 MG/0.5ML(0.5%) NEB SOLN NEB PRN (04:04)
[2022-06-15 05:00] VITALS: BP 125/78
[2022-06-15] MEDS: methylPREDNISolone SOD SUCC 40 MG/ML VL IV SCH (05:40)
[2022-06-15] MEDS: ALBUTEROL SULF 2.5 MG/0.5ML(0.5%) NEB SOLN NEB SCH ×2 (05:54→11:04)
[2022-06-15] MEDS: IPRATROPIUM BROM 0.5 MG/2.5ML INH SOL NEB SCH ×2 (05:55→11:04)
[2022-06-15] MEDS: cefTRIAXone 1GM/50ML D5W 50 ML IV SCH (09:41)
[2022-06-15] MEDS: levETIRAcetam 500 MG TAB PO SCH (09:42)
[2022-06-15] MEDS ORDERED: PRED20TA2 PO (09:42)
[2022-06-15] MEDS: ENOXAPARIN SOD 40 MG/0.4 ML SYRINGE SC SCH (09:42)
[2022-06-15] MEDS ORDERED: AMOX500T86 PO (09:42)
[2022-06-15] MEDS: DOCUSATE SOD 100 MG CAP PO SCH (09:42)
[2022-06-15] MEDS: PANTOPRAZOLE 40 MG/10 ML VIAL INJ IV SCH (09:42)
[2022-06-15] MEDS: DOXYCYCLINE 100 MG TAB/CAP PO SCH (09:42)
[2022-06-15] MEDS: LACTULOSE 20Gm/30ML SOLN PO SCH (09:48)
[2022-06-15 10:25] VITALS: BP 137/71
[2022-06-15 12:43] VITALS: BP 134/66
[2022-06-15 13:48] VITALS: BP 119/79
[2022-06-15 14:04] VITALS: BP 139/92
== END 2022-06-15 15:30 | disposition home health service (06) | DRG 193 ==
LOC: ER 11:22 → TELE 17:06 → TELE-CENTR 23:18
PROVIDERS: ADMIT Registered Nurse; ATTEND Internal Medicine Pulmonary Disease
DX: J18.9 Pneumonia, unspecified organism (principal); J96.21 Acute and chronic respiratory failure with hypoxia; J44.1 Chronic obstructive pulmonary disease with (acute) exacerbation; J44.0 Chronic obstructive pulmonary disease with (acute) lower respiratory infection; E03.9 Hypothyroidism, unspecified; E66.01 Morbid (severe) obesity due to excess calories; E78.5 Hyperlipidemia, unspecified; F17.210 Nicotine dependence, cigarettes, uncomplicated; F20.9 Schizophrenia, unspecified; F41.9 Anxiety disorder, unspecified; I25.10 Atherosclerotic heart disease of native coronary artery without angina pectoris; G89.29 Other chronic pain; M25.519 Pain in unspecified shoulder; K59.00 Constipation, unspecified; Z20.822 Contact with and (suspected) exposure to COVID-19; R56.9 Unspecified convulsions; F32.A Depression, unspecified; Z83.3 Family history of diabetes mellitus; Z90.49 Acquired absence of other specified parts of digestive tract; Z80.9 Family history of malignant neoplasm, unspecified; Z79.84 Long term (current) use of oral hypoglycemic drugs; Z79.899 Other long term (current) drug therapy; Z86.711 Personal history of pulmonary embolism; Z68.32 Body mass index [BMI] 32.0-32.9, adult
CPT/HCPCS: 36415; 36600; 71045; 71275; 80048; 80053; 80061; 81001; 82805; 83036; 83880; 84443; 84484; 85025; 87040; 93005; 93970; 94640; 94660; 96365; 96367; 96375; 97110; 97116; 97163; 97530; C9113; G0378; J0696